=== PATIENT | male | born 1960 | race Caucasian/White ===

== ENCOUNTER → 2021-01-12 15:23 | Outpatient (REF) | payer MEDICARE, SELFPAY ==
--- NOTE | 2021-01-12 15:35 | ECG_ITS ---
Test Reason : R/O CONDUCTION DELAY Blood Pressure : / mmHG Vent. Rate : 073 BPM Atrial Rate : 073 BPM P-R Int : 186 ms QRS Dur : 096 ms QT Int : 394 ms P-R-T Axes : 042 060 051 degrees QTc Int : 434 ms Normal sinus rhythm RSR' or QR pattern in V1 suggests right ventricular conduction delay Borderline ECG When compared with ECG of 06-FEB-2019 08:19, No significant change was found Referred By: Ryan Gimenez Electronically Signed By:CORY LORENZ
[2021-01-12 16:54] LABS: Vitamin D 25-OH Total 38.2 ng/mL (>30)
== END ==
LOC: HO.CARD 15:23
PROVIDERS: PCP Internal Medicine; Visit Provider Psychiatry & Neurology Psychiatry
DX: I25.10 Atherosclerotic heart disease of native coronary artery without angina pectoris (principal); E55.9 Vitamin D deficiency, unspecified
CPT/HCPCS: 36415; 82306; 93005

== ENCOUNTER → 2022-03-01 14:03 | Outpatient (BNVA) | payer MEDICARE, SELFPAY | PROVIDERS: PCP Internal Medicine; Visit Provider Psychiatry & Neurology Psychiatry | DX: F33.9 Major depressive disorder, recurrent, unspecified (principal); F43.10 Post-traumatic stress disorder, unspecified; Z79.899 Other long term (current) drug therapy | CPT/HCPCS: 90833; 99212 ==

== ENCOUNTER → 2022-04-15 13:38 | Outpatient (BNVA) | payer MEDICARE, SELFPAY | PROVIDERS: PCP Internal Medicine; Visit Provider Psychiatry & Neurology Psychiatry | DX: Z13.89 Encounter for screening for other disorder (principal) ==

== ENCOUNTER → 2022-04-29 15:05 | Outpatient (BNVA) | payer MEDICARE, SELFPAY | PROVIDERS: PCP Internal Medicine; Visit Provider Psychiatry & Neurology Psychiatry | DX: F33.9 Major depressive disorder, recurrent, unspecified (principal) ==

== ENCOUNTER → 2022-08-03 14:49 | Outpatient (BNVA) | payer MEDICARE, SELFPAY | PROVIDERS: PCP Internal Medicine; Visit Provider Psychiatry & Neurology Psychiatry | DX: F33.9 Major depressive disorder, recurrent, unspecified (principal) | CPT/HCPCS: 90833; 99212 ==

== ENCOUNTER 2022-11-03 16:58 | Outpatient (AMB) | payer OTHER, SELFPAY ==
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
== END 2022-11-03 17:01 | disposition home or self-care (01) ==
LOC: HO.HOP 16:58
PROVIDERS: PCP Internal Medicine; Visit Provider Psychiatry & Neurology Psychiatry
DX: F33.9 Major depressive disorder, recurrent, unspecified (principal); F43.10 Post-traumatic stress disorder, unspecified; M54.16 Radiculopathy, lumbar region
CPT/HCPCS: 90833; 99213

== ENCOUNTER → 2022-11-03 16:58 | Outpatient (BNVA) | payer MEDICARE, SELFPAY | PROVIDERS: PCP Internal Medicine; Visit Provider Psychiatry & Neurology Psychiatry ==

== ENCOUNTER 2023-02-16 11:40 | Outpatient (AMB) | payer OTHER, SELFPAY ==
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
== END 2023-02-16 12:32 | disposition home or self-care (01) ==
LOC: HO.HOP 11:40
PROVIDERS: PCP Internal Medicine; Visit Provider Psychiatry & Neurology Psychiatry
DX: F33.9 Major depressive disorder, recurrent, unspecified (principal); F43.10 Post-traumatic stress disorder, unspecified
CPT/HCPCS: 90833; 99213

== ENCOUNTER → 2023-02-16 11:40 | Outpatient (BNVA) | payer OTHER, SELFPAY | PROVIDERS: PCP Internal Medicine; Visit Provider Psychiatry & Neurology Psychiatry ==

== ENCOUNTER 2023-03-16 15:59 | Outpatient (AMB) | payer OTHER, SELFPAY ==
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
== END 2023-03-16 17:08 | disposition home or self-care (01) ==
LOC: HO.HOP 15:59
PROVIDERS: PCP Internal Medicine; Visit Provider Psychiatry & Neurology Psychiatry
DX: F33.9 Major depressive disorder, recurrent, unspecified (principal); F43.10 Post-traumatic stress disorder, unspecified
CPT/HCPCS: 90833; 99213

== ENCOUNTER → 2023-03-16 15:59 | Outpatient (BNVA) | payer OTHER, SELFPAY | PROVIDERS: PCP Internal Medicine; Visit Provider Psychiatry & Neurology Psychiatry ==

== ENCOUNTER 2023-05-22 14:39 | Outpatient (AMB) | payer OTHER, SELFPAY ==
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
== END 2023-05-22 16:50 | disposition home or self-care (01) ==
LOC: HO.HOP 14:39
PROVIDERS: PCP Internal Medicine; Visit Provider Psychiatry & Neurology Psychiatry
DX: F43.10 Post-traumatic stress disorder, unspecified (principal); F33.9 Major depressive disorder, recurrent, unspecified; M54.16 Radiculopathy, lumbar region
CPT/HCPCS: 90833; 99213

== ENCOUNTER → 2023-05-22 14:39 | Outpatient (BNVA) | payer OTHER, SELFPAY | PROVIDERS: PCP Internal Medicine; Visit Provider Psychiatry & Neurology Psychiatry ==

== ENCOUNTER 2023-07-03 16:31 | Outpatient (AMB) | payer OTHER, SELFPAY ==
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
== END 2023-07-03 16:32 | disposition home or self-care (01) ==
LOC: HO.HOP 16:31
PROVIDERS: PCP Internal Medicine; Visit Provider Psychiatry & Neurology Psychiatry
DX: F33.9 Major depressive disorder, recurrent, unspecified (principal); F43.10 Post-traumatic stress disorder, unspecified
CPT/HCPCS: 90833; 99213

== ENCOUNTER → 2023-07-03 16:31 | Outpatient (BNVA) | payer OTHER, SELFPAY | PROVIDERS: PCP Internal Medicine; Visit Provider Psychiatry & Neurology Psychiatry ==

== ENCOUNTER 2023-07-27 10:48 | Outpatient (AMB) | payer OTHER, SELFPAY ==
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
== END 2023-07-27 11:49 | disposition home or self-care (01) ==
LOC: HO.HOP 10:48
PROVIDERS: PCP Internal Medicine; Visit Provider Psychiatry & Neurology Psychiatry
DX: F43.10 Post-traumatic stress disorder, unspecified (principal); F33.9 Major depressive disorder, recurrent, unspecified
CPT/HCPCS: 90833; 99213

== ENCOUNTER → 2023-07-27 10:48 | Outpatient (BNVA) | payer OTHER, SELFPAY | PROVIDERS: PCP Internal Medicine; Visit Provider Psychiatry & Neurology Psychiatry ==

== ENCOUNTER 2023-08-24 13:33 | Outpatient (AMB) | payer OTHER, SELFPAY ==
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
== END 2023-08-24 14:20 | disposition home or self-care (01) ==
LOC: HO.HOP 13:33
PROVIDERS: PCP Internal Medicine; Visit Provider Psychiatry & Neurology Psychiatry
DX: F43.10 Post-traumatic stress disorder, unspecified (principal); F33.9 Major depressive disorder, recurrent, unspecified; M54.16 Radiculopathy, lumbar region
CPT/HCPCS: 99214

== ENCOUNTER → 2023-08-24 13:33 | Outpatient (BNVA) | payer OTHER, SELFPAY | PROVIDERS: PCP Internal Medicine; Visit Provider Psychiatry & Neurology Psychiatry ==

== ENCOUNTER 2023-11-16 10:23 | Outpatient (AMB) | payer OTHER, SELFPAY ==
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
== END 2023-11-16 11:20 | disposition home or self-care (01) ==
LOC: HO.HOP 10:23
PROVIDERS: PCP Internal Medicine; Visit Provider Psychiatry & Neurology Psychiatry
DX: F33.9 Major depressive disorder, recurrent, unspecified (principal); F43.10 Post-traumatic stress disorder, unspecified
CPT/HCPCS: 99214

== ENCOUNTER → 2023-11-16 10:23 | Outpatient (BNVA) | payer OTHER, SELFPAY | PROVIDERS: PCP Internal Medicine; Visit Provider Psychiatry & Neurology Psychiatry ==

== ENCOUNTER 2024-01-04 13:25 | Outpatient (AMB) | payer OTHER, SELFPAY ==
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
== END 2024-01-04 14:07 | disposition home or self-care (01) ==
LOC: HO.HOP 13:25
PROVIDERS: PCP Internal Medicine; Visit Provider Psychiatry & Neurology Psychiatry
DX: F33.9 Major depressive disorder, recurrent, unspecified (principal); F43.10 Post-traumatic stress disorder, unspecified
CPT/HCPCS: 90833; 99213

== ENCOUNTER → 2024-01-04 13:25 | Outpatient (BNVA) | payer OTHER, SELFPAY | PROVIDERS: PCP Internal Medicine; Visit Provider Psychiatry & Neurology Psychiatry ==

== ENCOUNTER 2024-06-06 17:04 | Outpatient (AMB) | payer OTHER, SELFPAY ==
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
--- OUTSIDE RECORDS SUMMARY | 2024-06-06 19:35 | XMS_ITS ---
Author Name [facility] Organization Unknown History of Medication Use Medication Directions Dispensed Refills Start Date End Date Status hydroCHLOROthiazide (HYDRODIURIL) tablet hydrochlorothiazide 25 mg tablet TAKE 1 TABLET BY MOUTH EVERY DAY 05/15/19 18 active amLODIPine (NORVASC) 10 mg tablet amlodipine 10 mg tablet TAKE 1 TABLET BY MOUTH EVERY DAY 07/03/19 21 active DULoxetine (CYMBALTA) 20 mg capsule Take by mouth. 10/14/19 22 active insulin lispro 100 unit/mL insulin pen Humalog KwikPen (U-100) Insulin 100 unit/mL subcutaneous INJECT 50 UNITS UNDER THE SKIN EVERY DAY AFTER DINNER active gabapentin (NEURONTIN) 300 mg capsule Take 600 mg by mouth. 09/02/19 22 active insulin glargine (Lantus Solostar U-100 Insulin) 100 unit/mL (3 mL) insulin pen Lantus Solostar U-100 Insulin 100 unit/mL (3 mL) subcutaneous pen INJECT 120 UNITS UNDER THE SKIN ONCE DAILY DIRECTED active hydrALAZINE (APRESOLINE) 50 mg tablet Take 50 mg by mouth in the morning and 50 mg in the evening. Take with meals. 09/10/19 22 022 active Jardiance 25 mg tablet TAKE 1 TABLET BY MOUTH EVERY DAY IN THE MORNING 08/13/19 22 active Problems Problem Status Onset Date Problem Type Date of Resolution Source Hypercholesterolemia active 5 ProblemAct [facility] Pain active EncounterDiagnosisAct [facility] Diabetes mellitus active 5 ProblemAct [facility] Hypertension active 5 ProblemAct [facility] Cannabis abuse active 5 ProblemAct [facility] Lumbosacral spondylosis without myelopathy active 5 ProblemAct [facility] Herniated lumbar intervertebral disc active 5 ProblemAct [facility] Osteoarthritis active 5 ProblemAct [facility] Lumbar radiculitis active EncounterDiagnosisAct [facility] Chronic low back pain active 5 ProblemAct [facility] Spinal stenosis of lumbar region active 5 ProblemAct [facility] Lumbar spondylosis active EncounterDiagnosisAct [facility] Headache active 5 ProblemAct [facility] Narcotic drug use active 5 ProblemAct [facility] Lumbosacral radiculitis active 5 ProblemAct [facility] Lumbar post-laminectomy syndrome active 5 ProblemAct [facility] Obesity active 5 ProblemAct [facility] Arteriosclerosis of coronary artery active 5 ProblemAct [facility] Enthesopathy of hip region active 5 ProblemAct [facility]
--- OUTSIDE RECORDS SUMMARY | 2024-06-06 19:35 | XMS_ITS | Data Portability ---
Author Organization [facility], PAIN OFFICE Address [address] [facility] [address] [place] [address] Care Team Providers Care Sourcing Assistant Name Role Phone SHIV GUEVARA Primary Care Provider Assessment Encounter Date Assessment Date Assessment LastModified by Organization Details LastModified Time 11/23/2018 11/23/2018 Pete Gonzalez i s a 58 year old man with chronic low back pain radiating into right lower extremity. On exam, well healed scar is present in the lower lumbar region. Straight leg raising test is positive on the right. MRI Lumbar spine shows L3-L4 level: essentially similar partial right hemilaminectomy/fa cetectomy surgical sequela and nonspecific mild epidural enhancement. Disc bulging, mild endplate osteophytic ridging and interval developing superimposed peripherally enhancing T2 hyperintense primarily central disc herniation result in the interval increased central spinal canal with at least moderate central spinal canal stenosis (cauda equina nerve root impingement not excluded) and essentially similar mild bilateral neural foraminal stenosis. He is here for a follow up . He is on Fentanyl patch 25 mcg every 72 hours and uses oxycodone 20 mg every 6 hours. He wants to wean off the fentanyl patch. I recommend stopping the fentanyl patch. I recommend Oxycodone ER 20 mg BID and reducing the dose of short acting oxycodone to 10 mg every 6 hours. I have advised him to discuss the recommendations with Dr. Guevara, His PCP. There is a role for opioid therapy for persistent mechanical pain refractory to other treatments. I have reviewed Mr. Gonzalez's prescription summary on the [facility] website and he has received prescriptions from his PCP , Dr. Guevara only and at one pharmacy the [place], [place]. He can follow up as needed. [email or web address] Not available 12/18/2018 16:18:47 09/04/2019 09/04/2019 Pete Gonzalez i s a 55 year old man with chronic low back pain radiating into left lower extremity. MRI Lumbar spine shows Multilevel degenerative change and L3-L4 postoperative changes. Persistent moderate central stenosis L3-L4 level related to disc herniation and central scar with focal crowding of nerve roots of the cauda equina. L4-L5 left central disc herniation with extruded fragment deforming thecal sac and focally contacting left L5 nerve root, a change from preceding study. I recommend a lumbar epidural steroid injection under fluoroscopic guidance. The risks and benefits of the procedure were reviewed in detail and he wishes to proceed. An appointment has been made for the same. He needs a route cdl driver with him on the day of the procedure. [email or web address] Not available 09/04/2019 09:22:29 10/02/2019 10/02/2019 Pete Gonzalez i s a 59 year old man with chronic low back pain radiating into left lower extremity. On exam, well healed scar is present in the lower lumbar region. Straight leg raising test is positive on the left. MRI Lumbar spine shows Multilevel degenerative change and L3-L4 postoperative changes. Persistent moderate central stenosis L3-L4 level related to disc herniation and central scar with focal crowding of nerve roots of the cauda equina. L4-L5 left central disc herniation with extruded fragment deforming thecal sac and focally contacting left L5 nerve root, a change from preceding study. He is here for a repeat lumbar epidural steroid injection under fluoroscopic guidance. The risks and benefits of the procedure were reviewed in detail and he wishes to proceed. He needs to follow up in six weeks by telehealth. [email or web address] Not available 10/02/2019 10:03:55 10/24/2019 10/24/2019 Pete Gonzalez i s a 59 year old man with chronic low back pain radiating into left lower extremity. On exam, well healed scar is present in the lower lumbar region. Straight leg raising test is positive on the left. MRI Lumbar spine shows Multilevel degenerative change and L3-L4 postoperative changes. Persistent moderate central stenosis L3-L4 level related to disc herniation and central scar with focal crowding of nerve roots of the cauda equina. L4-L5 left central disc herniation with extruded fragment deforming thecal sac and focally contacting left L5 nerve root, a change from preceding study. He is here for a follow up after a lumbar epidural steroid injection under fluoroscopic guidance.He reports 90% pain relief which is ongoing with improved functionality. He can follow up as needed. [email or web address] Not available 10/24/2019 11:05:41 07/20/2020 07/20/2020 Pete Gonzalez i s a 55 year old man with chronic low back pain radiating into left lower extremity. MRI Lumbar spine shows Multilevel degenerative change and L3-L4 postoperative changes. Persistent moderate central stenosis L3-L4 level related to disc herniation and central scar with focal crowding of nerve roots of the cauda equina. L4-L5 left central disc herniation with extruded fragment deforming thecal sac and focally contacting left L5 nerve root, a change from preceding study. I recommend a lumbar epidural steroid injection under fluoroscopic guidance once his diabetes is better controlled. His Last A1c was 9.9 . The risks and benefits of the procedure were reviewed in detail and he wishes to proceed. An appointment has been made for the same. He needs a route cdl driver with him on the day of the procedure. [email or web address] Not available 07/20/2020 14:53:59 Plan of Treatment Reminders Order Date Submit Date Provider Last Modified By Organization Details Last Modified Time Details Appointments None record ed. Lab None record ed. Referral None record ed. Procedures None record ed. Surgeries None record ed. Imaging None record ed. Medication Orders None record ed. Patient TargetsNo targets recorded. Patient Instructions Encounter Date Encounter Id Patient Instructions Last Modified By Organization Details Last Modified Time 11/23/2018 [id number] He was advised against bed rest lasting longer than 4 days [email or web address] Not available 12/18/2018 16:08:18 09/04/2019 [id number] He is a diabetic. Blood sugar levels may temporarily increase after steroid injections. He was advised to check his blood glucose levels three times a day post procedure. If his levels are above 250, he was advised to contact his PCP. [email or web address] Not available 09/04/2019 09:23:02 He was advised against bed rest lasting longer than 4 days. Telehealth visit: The patient was located at home for this telephone electronic visit and gave consent for this visit to be conducted via telehealth. 15 minutes was spent on this call and greater than 50% of the visit was spent on counseling and coordination of care. [email or web address] Not available 09/04/2019 09:22:50 10/02/2019 [id number] He was advised against bed rest lasting longer than 4 days [email or web address] Not available 10/02/2019 10:02:03 10/24/2019 [id number] He was advised against bed rest lasting longer than 4 days. Telehealth visit: The patient was located at home for this telephone electronic visit and gave consent for this visit to be conducted via telehealth. 15 minutes was spent on this call and greater than 50% of the visit was spent on counseling and coordination of care. [email or web address] Not available 10/24/2019 11:05:56 07/20/2020 [id number] He is a diabetic. Blood sugar levels may temporarily increase after steroid injections. He was advised to check his blood glucose levels three times a day post procedure. If his levels are above 250, he was advised to contact his PCP. [email or web address] Not available 07/20/2020 14:05:17 He was advised against bed rest lasting longer than 4 days. Telehealth visit: The patient was located at home for this telephone electronic visit and gave consent for this visit to be conducted via telehealth. 15 minutes was spent on this call and greater than 50% of the visit was spent on counseling and coordination of care. [email or web address] Not available 07/20/2020 14:05:18 Reason for Referral None Reported. Problems Name Problem SNOMED Code Status Onset Date Resolution Date Notes Provider Name and Address Organization Details Recorded Time Spinal stenosis of lumbar region 73937062 Sheila casiano MD [address] , [address], [place], [address], [place] [facility] 6 13:52:32 Displacement of lumbar intervertebral disc without myelopathy 31043295 Sheila casiano MD [address] , [address], [place], [address], [place] [facility] 6 13:52:32 Enthesopathy of hip region 44425952 Sheila casiano MD [address] , [address], [place], [address], [place] [facility] 6 13:58:18 Lumbar post-laminecto my syndrome 284155695 Active Hadley casiano MD [address] , [address], [place], [address], [place] [facility] 6 13:52:32 Lumbosacral radiculitis 35319803 Active Hadley casiano MD [address] [facility] , [address], [place], [address], [place] [facility] 6 13:52:32 Lumbosacral spondylosis without myelopathy 26918457 Active Hadley casiano MD [address] [facility] , [address], [place], [address], [place] [facility] 6 13:52:32 Problem Notes None recorded. Procedures Surgical History Date Name Laterality Status Provider Name and Address Organization Details Recorded Time 10/02/19 20 Lumbar Epidural steroid injection under fluoroscopic guidance completed Hadley Meng MD [address] [facility] , [address], [place], [address], [place] [facility] 10/02/2019 10:03:06 05/02/19 19 Lumbar Epidural steroid injection under fluoroscopic guidance completed Hadley Meng MD [address] [facility] , [address], [place], [address], [place] [facility] 05/03/2018 14:05:54 12/30/19 16 Lumbar Transforaminal epidural steroid injection under fluroscopic guidance completed Hadley Meng MD [address] [facility] , [address], [place], [address], [place] [facility] 12/30/2015 13:42:56 11/17/19 16 Greater Trochanteric Bursa Steroid Injection completed Hadley Meng MD [address] [facility] , [address], [place], [address], [place] [facility] 11/17/2015 13:58:18 02/09/20 10 Other completed Stacia Arriaga [place] [facility] 11/04/2015 23:00:26 Cholecystectomy completed Stacia Arriaga [place] [facility] 10/29/2015 09:12:56 Knee Surgery completed Stacia Arriaga [place] [facility] 11/05/2015 10:42:56 Other completed Stacia Coucher [place] [facility] 04/06/2016 14:08:48 CABG completed Stacia Arriaga [place] [facility] 04/12/2018 13:34:24 Imaging Results None recorded. Procedure Notes None recorded. Medical Equipment None Reported. Allergies No known drug allergies Medications Name Sig Start Date Stop Date Status Note LastModified by Organization Details LastModified Time quetiapine 25 mg tablet 09/03 completed Not Available Not Available Not Available fluoxetine 40 mg capsule 05/02 completed Not Available Not Available Not Available cyclobenzap rine 10 mg tablet active Not Available Not Available Not Available amoxicillin 500 mg capsule 05/02 completed Not Available Not Available Not Available atorvastati n 40 mg tablet TAKE 1 TABLET BY MOUTH DAILY active Not Available Not Available No t Available fentanyl 50 mcg/hr transdermal patch 11/23 completed Not Available Not Available Not Available carvedilol 25 mg tablet TAKE 1 AND 1/2 TABLETS BY MOUTH TWICE DAILY active Not Available Not Available No t Available carvedilol 6.25 mg tablet TAKE 1 TABLET BY MOUTH TWICE DAILY active Not Available Not Available No t Available clonidine 0.1 mg/24 hr weekly transdermal patch 04/26 completed Not Available Not Available Not Available tizanidine 2 mg tablet 04/06 completed Not Available Not Available Not Available clonidine 0.2 mg/24 hr weekly transdermal patch 04/26 completed Not Available Not Available Not Available ondansetron HCl 4 mg tablet 11/23 completed Not Available Not Available Not Available clonazepam 0.5 mg tablet 09/03 completed Not Available Not Available Not Available clonazepam 1 mg tablet TAKE 1 TABLET BY MOUTH TWICE DAILY. MAY TAKE 1 DAILY NEEDED active Not Available Not Available No t Available amlodipine 5 mg tablet 09/03 completed Not Available Not Available Not Available quetiapine 100 mg tablet TAKE 2 TABLETS BY MOUTH DAILY 07/20 completed Not Available Not Available Not Available triamcinolo ne acetonide 0.1 % topical cream active Not Available Not Available Not Available amitriptyli ne 25 mg tablet 04/12 completed Not Available Not Available Not Available fentanyl 100 mcg/hr transdermal patch 04/12 completed Not Available Not Available Not Available hydrocortis one 2.5 % lotion 11/23 completed Not Available Not Available Not Available trazodone 100 mg tablet 09/03 completed Not Available Not Available Not Available OneTouch Ultra Test strips active Not Available Not Available Not Available amlodipine 10 mg tablet TAKE 1 TABLET BY MOUTH EVERY DAY active Not Available Not Available No t Available metformin 1,000 mg tablet active Not Available Not Available Not Available dexamethaso ne 4 mg tablet 05/02 completed Not Available Not Available Not Available valsartan 320 mg tablet active Not Available Not Available Not Available aspirin 81 mg chewable tablet CHEW AND SWALLOW 1 TABLET BY MOUTH DAILY active Not Available Not Available No t Available montelukast 10 mg tablet active Not Available Not Available Not Available hydralazine 50 mg tablet TAKE 1 TABLET BY MOUTH TWICE DAILY WITH FOOD active Not Available Not Available No t Available clonidine 0.3 mg/24 hr weekly transdermal patch 04/26 completed Not Available Not Available Not Available hydrochloro thiazide 25 mg tablet TAKE 1 TABLET BY MOUTH EVERY DAY active Not Available Not Available No t Available zolpidem 5 mg tablet 09/03 completed Not Available Not Available Not Available lorazepam 1 mg tablet Take 1 tablet 3 times a day by oral route. 09/03 completed Not Available Not Available Not Available fentanyl 25 mcg/hr transdermal patch 09/03 completed Not Available Not Available Not Available ketoconazol e 2 % topical cream active Not Available Not Available Not Available nifedipine ER 60 mg tablet,exte nded release 11/23 completed Not Available Not Available Not Available fentanyl 75 mcg/hr transdermal patch Apply 1 patch every 72 hours by transderm al route. 11/23 completed Not Available Not Available Not Available ondansetron 4 mg disintegrat ing tablet 09/03 completed Not Available Not Available Not Available fluoxetine 20 mg capsule 11/23 completed Not Available Not Available Not Available fluticasone propionate 50 mcg/actuati on nasal spray,suspe nsion USE 2 SPRAY(S) IN EACH NOSTRIL ONCE DAILY active Not Available Not Available No t Available doxycycline hyclate 100 mg tablet 05/02 completed Not Available Not Available Not Available irbesartan 300 mg tablet TAKE 1 TABLET BY MOUTH EVERY DAY active Not Available Not Available No t Available testosteron e 1 % (50 mg/5 gram) transdermal gel packet 09/03 completed Not Available Not Available Not Available Pneumovax-2 3 25 mcg/0.5 mL injection syringe inject 0.5 millilite r intramusc ularly 09/03 completed Not Available Not Available Not Available aripiprazol e 5 mg tablet 09/03 completed Not Available Not Available Not Available eszopiclone 2 mg tablet TK 1 T PO QHS active Not Available Not Available No t Available OneTouch Ultra2 Meter kit active Not Available Not Available No t Available BD Ultra-Fine Short Pen Needle 31 gauge x 08/23 active Not Available Not Available Not Available quetiapine 50 mg tablet TK 1/2 TO 2 TS PO D 10/23 completed Not Available Not Available Not Available Januvia 100 mg tablet 04/12 completed Not Available Not Available Not Available hydrochloro thiazide 12.5 mg tablet 05/02 completed Not Available Not Available Not Available Lantus Solostar U-100 Insulin 100 unit/mL (3 mL) subcutaneou s pen INJECT 120 UNITS UNDER THE SKIN ONCE DAILY DIRECTED active Not Available Not Available No t Available Humalog KwikPen (U-100) Insulin 100 unit/mL subcutaneou s INJECT 50 UNITS UNDER THE SKIN EVERY DAY AFTER DINNER active Not Available Not Available No t Available oxycodone 20 mg tablet 1 tab QID 09/03 completed Not Available Not Available Not Available oxycodone 10 mg tablet active Not Available Not Available Not Available Deplin (algal oil) 15 mg-90.314 mg capsule Take 1 capsule every day by oral route. 09/03 completed Not Available Not Available Not Available Fetzima 80 mg capsule,ext ended release Take 1 capsule every day by oral route. 09/03 completed Not Available Not Available Not Available OxyContin 20 mg tablet,megan h resistant,e xtended release 09/03 completed Not Available Not Available Not Available Rexulti 1 mg tablet Take 1 tablet every day by oral route. 09/03 completed Not Available Not Available Not Available Xtampza ER 9 mg capsule sprinkle 09/03 completed Not Available Not Available Not Available Xtampza ER 13.5 mg capsule sprinkle active Not Available Not Available Not Available Trintellix 20 mg tablet TAKE 1 TABLET BY MOUTH EVERY DAY active Not Available Not Available No t Available OneTouch Ultra Blue Test Strip active Not Available Not Available N ot Available FreeStyle Tonio 14 Day [place] USE DIRECTED active Not Available Not Available No t Available FreeStyle Tonio 14 Day Sensor kit CHANGE OUT EVERY 2 WEEKS active Not Available Not Available No t Available Flucelvax Quad 1986-4801 (PF) 60 mcg (15 mcg x 4)/0.5 mL IM syringe inject 0.5 millilite rs intramusc ularly 09/03 completed Not Available Not Available Not Available Vitals Date Recorded Body height Body mass index (BMI) Body weight Heart rate Oxygen saturation Oxygen saturation in Arterial blood by Pulse oximetry Systolic blood pressure Diastolic blood pressure Provider Name and Address Organization Details Last Updated DateTime 9 182.88 cm 35.4 kg/m2 920678. 61 g 84 /min 97 % 97 % 175 mm[Hg] 82 mm[Hg] Hadley casiano MD [facility] [address] [facility] , [address], [place], [address], [place] [facility] 9 11:21:54 Date Recorded Body height Heart rate Oxygen saturation Oxygen saturation in Arterial blood by Pulse oximetry Body mass index (BMI) Body weight Systolic blood pressure Diastolic blood pressure Provider Name and Address Organization Details Last Updated DateTime 0 182.88 cm 88 /min 98 % 98 % 35.4 kg/m2 839095. 61 g 166 mm[Hg] 79 mm[Hg] Shahzad casiano [place] [facility] 0 09:24:51 Social History Question Answer Notes LastModified by Organizat ion Details LastModified Time Tobacco Smoking Status Former Smoker Quit x 3 months Not Available [facility] 01/24/2020 03:16:10 What Is Your Level Of Alcohol Consumption? None [id number] Information not available 01/24/2020 Are You Currently Employed? No Disability [id number] Information not available 01/24/2020 Which Illicit Or Recreational Drugs Have You Used? No [id number] Information not available 01/24/2020 Education 4 Year College BA [email or web address] Information not available 10/29/2015 Live Alone Or With Others? With Others Information not available 10/29/2015 Marital Status Informatio n not available 10/29/2015 What Was The Date Of Your Most Recent Tobacco Screening? 05/31/2018 [id number] Information not available 01/24/2020 How Much Tobacco Do You Smoke? No [id number] Information not available 01/24/2020 How Many Years Have You Smoked Tobacco? 10 [id number] Information not available 01/24/2020 Sex: Unknown Functional Status None recorded. Mental Status None recorded. Family History Nothing Reported. Medical History Condition Response Neuropathy/Neuralgia Y Depression Y Diabetes Y Anxiety Disorder Y Hypertension Y Past Encounters Encounter ID Performer Location Encounter Start Date Encounter Closed Date Diagnosis/Indication Diagnosis SNOMED-CT Code Diagnosis ICD10 Code Diagnosis Note [id number] Hadley Meng MD PAIN OFFICE [address] [place] [address] 10/29/2015 08:41:04 11/02/2015 15:59:09 Enthesopathy of hip region 09855095 M76.9 Lumbar post-laminectomy syndrome 802734864 M96.1 Spinal nilo nosis of lumbar region 81405195 M48.06 Lumbosacra l radiculitis 98201538 M54.17 Lumbosacra l spondylosis without myelopathy 80729829 M47.817 Displaceme nt of lumbar intervertebral disc without myelopathy 56778776 M51.26 [id number] Hadley Meng MD PAIN OFFICE [address] [place] [address] 11/17/2015 12:57:51 11/17/2015 14:00:05 Enthesopathy of hip region 35974748 M70.61 [id number] Hadley Meng MD PAIN OFFICE [address] [place] [address] 12/17/2015 14:18:25 12/19/2015 10:23:49 Enthesopathy of hip region 59856925 M76.9 Lumbar post-laminectomy syndrome 762584365 M96.1 Spinal nilo nosis of lumbar region 55181732 M48.06 Lumbosacra l radiculitis 29258830 M54.17 Lumbosacra l spondylosis without myelopathy 75492024 M47.817 Displaceme nt of lumbar intervertebral disc without myelopathy 58051552 M51.26 [id number] Hadley Meng MD [facility] [address] [place] [address] 12/30/2015 10:13:40 12/31/2015 08:41:07 Lumbosacral radiculitis 19176462 M54.17 Lumbar post-laminectomy syndrome 919118520 M96.1 Spinal nilo nosis of lumbar region 24903480 M48.06 Displaceme nt of lumbar intervertebral disc without myelopathy 90466000 M51.26 Enthesopat hy of hip region 91590658 M76.9 Lumbosacra l spondylosis without myelopathy 56540467 M47.817 [id number] Hadley Meng MD [facility] [address] [place] [place] [address] 02/08/2016 10:27:14 02/13/2016 13:21:47 Lumbosacral radiculitis 14197515 M54.17 Lumbar post-laminectomy syndrome 530461883 M96.1 Spinal nilo nosis of lumbar region 16486891 M48.06 Displaceme nt of lumbar intervertebral disc without myelopathy 95796655 M51.26 Enthesopat hy of hip region 65559419 M76.9 Lumbosacra l spondylosis without myelopathy 29557263 M47.817 [id number] Hadley Meng MD [facility] [address] [place] [place] [address] 04/06/2016 13:54:38 04/07/2016 14:29:57 Lumbosacral radiculitis 36968295 M54.17 Lumbar post-laminectomy syndrome 995152275 M96.1 Spinal nilo nosis of lumbar region 99037892 M48.06 Displaceme nt of lumbar intervertebral disc without myelopathy 18563313 M51.26 Enthesopat hy of hip region 60243928 M76.9 Lumbosacra l spondylosis without myelopathy 92782275 M47.817 [id number] Hadley Meng MD [facility] [address] [place] [address] 04/12/2018 13:23:42 04/13/2018 09:35:11 Spinal stenosis of lumbar region 25482942 M48.061 Lumbar post-laminectomy syndrome 167133901 M96.1 Lumbosacra l radiculitis 02852634 M54.17 Lumbosacra l spondylosis without myelopathy 34749084 M47.817 Displaceme nt of lumbar intervertebral disc without myelopathy 34442137 M51.26 Enthesopat hy of hip region 51935951 M76.9 [id number] Hadley Meng MD PAIN OFFICE [address] [place] [address] 04/26/2018 10:16:43 04/26/2018 11:54:39 Spinal stenosis of lumbar region 05030862 M48.061 Lumbar post-laminectomy syndrome 898750064 M96.1 Lumbosacra l radiculitis 41543794 M54.17 Lumbosacra l spondylosis without myelopathy 94932622 M47.817 Displaceme nt of lumbar intervertebral disc without myelopathy 76388238 M51.26 Enthesopat hy of hip region 15355653 M76.9 [id number] Hadley Meng MD PAIN OFFICE [address] [place] [place] [address] 05/02/2018 10:32:38 05/03/2018 14:10:03 Spinal stenosis of lumbar region 95471551 M48.061 Lumbar post-laminectomy syndrome 993392511 M96.1 Lumbosacra l radiculitis 98208134 M54.17 Lumbosacra l spondylosis without myelopathy 65302918 M47.817 Displaceme nt of lumbar intervertebral disc without myelopathy 58323870 M51.26 Enthesopat hy of hip region 24014920 M76.9 [id number] Hadley Meng MD [facility] [address] [place] [address] 05/31/2018 13:26:45 05/31/2018 14:00:17 Spinal stenosis of lumbar region 23465678 M48.061 Lumbar post-laminectomy syndrome 300494254 M96.1 Lumbosacra l radiculitis 49984563 M54.17 Lumbosacra l spondylosis without myelopathy 00352890 M47.817 Displaceme nt of lumbar intervertebral disc without myelopathy 62785701 M51.26 Enthesopat hy of hip region 33144275 M76.9 [id number] Hadley Meng MD PAIN OFFICE [address] [employer] [address] [place] [address] 11/23/2018 10:46:54 12/18/2018 16:19:23 Lumbosacral radiculitis 79879014 M54.17 Lumbar post-laminectomy syndrome 328836513 M96.1 Spinal nilo nosis of lumbar region 46595286 M48.061 Displaceme nt of lumbar intervertebral disc without myelopathy 66327243 M51.26 Enthesopat hy of hip region 18061473 M76.9 Lumbosacra l spondylosis without myelopathy 15638302 M47.817 [id number] Hadley Meng MD PAIN OFFICE [address] [employer] [place] [place] [address] 09/04/2019 09:00:24 09/04/2019 09:23:48 Spinal stenosis of lumbar region 08421919 M48.061 Lumbar post-laminectomy syndrome 820536648 M96.1 Lumbosacra l radiculitis 54857986 M54.17 Lumbosacra l spondylosis without myelopathy 91387621 M47.817 Displaceme nt of lumbar intervertebral disc without myelopathy 58871328 M51.26 Enthesopat hy of hip region 76713746 M76.9 [id number] Hadley Meng MD PAIN OFFICE [address] [employer] [place] [place] [address] 10/02/2019 09:17:58 10/02/2019 10:29:09 Spinal stenosis of lumbar region 29645120 M48.061 Lumbar post-laminectomy syndrome 567807459 M96.1 Lumbosacra l radiculitis 85923418 M54.17 Lumbosacra l spondylosis without myelopathy 22181221 M47.817 Displaceme nt of lumbar intervertebral disc without myelopathy 26099477 M51.26 Enthesopat hy of hip region 47206837 M76.9 [id number] Hadley Meng MD PAIN OFFICE [address] [employer] [address] [place] [address] 10/24/2019 10:59:19 10/24/2019 11:06:51 Spinal stenosis of lumbar region 28867327 M48.061 Lumbar post-laminectomy syndrome 153460238 M96.1 Lumbosacra l radiculitis 74303530 M54.17 Lumbosacra l spondylosis without myelopathy 16213657 M47.817 Displaceme nt of lumbar intervertebral disc without myelopathy 74209358 M51.26 Enthesopat hy of hip region 96559364 M76.9 [id number] Hadley Meng MD [facility] PAIN OFFICE [address] [facility] [address] [place] [address] 07/20/2020 14:03:57 07/20/2020 14:54:36 Spinal stenosis of lumbar region 63836103 M48.061 Lumbar post-laminectomy syndrome 103353206 M96.1 Lumbosacra l radiculitis 22173907 M54.17 Lumbosacra l spondylosis without myelopathy 72859918 M47.817 Displaceme nt of lumbar intervertebral disc without myelopathy 40920540 M51.26 Enthesopat hy of hip region 68187599 M76.9 Health Concerns Section Related Observation LastModified by Organization Detai ls LastModified Time None Recorded Concern Status LastModified by Organization Details LastModified Time None Recorded Advance Directives Directive None Recorded Payers Encounter Date Sequence Insurance Name Policy Number Policy Curry Covered Member ID Curry Member ID Guarantor Name 11/23/2018 1 [facility] (MEDICARE REPLACEMENT/A DVANTAGE - PPO) [id number] Pete Gonzalez [id number] Pete Gonzalez 11/23/2018 2 [facility]: [facility] [id number] Pete Gonzalez [id number] Pete Gonzalez 09/04/2019 1 [facility] (MEDICARE REPLACEMENT/A DVANTAGE - PPO) [id number] Pete Gonzalez [id number] Pete Gonzalez 09/04/2019 2 [facility]: [facility] ([facility] [place] [facility] [id number] Pete Gonzalez [id number] Pete Gonzalez 10/02/2019 1 [facility] (MEDICARE REPLACEMENT/A DVANTAGE - PPO) [id number] Pete Gonzalez [id number] Pete Solistt 10/02/2019 2 [place] [facility] [place] [facility] [id number] Pete Gonzalez [id number] Pete Gonzalez 10/24/2019 1 [facility] (MEDICARE REPLACEMENT/A DVANTAGE - PPO) [id number] Pete Gonzalez [id number] Pete Gonzalez 10/24/2019 2 [place] [facility] [place] [id number] Pete Gonzalez [id number] Pete Gonzalez 07/20/2020 1 [facility] (MEDICARE REPLACEMENT/A DVANTAGE - PPO) [id number] Pete Adleravitt [id number] Pete Adleravitt Notes Date Note Type Note Provider Name and Address Organization Details Recorded Time 11/23/2018 text/html He is here for a follow up. He is on Fentanyl patches 25 mcg every 72 hours and He is unsure of his pain benefit. He wants to wean off the fentanyl patch. He is taking Oxycodone 20 mg every 4 hours with some pain benefit. He is on a narcotic contract with Dr. Guevara. He states his goal is wean off the opioid medications . He has no history of bladder or bowel incontinence. Hadley Meng MD [address] [facility] , [place] [address], [place], [address], [facility] Pain Management 12/18/2018 16:21:02 09/04/2019 text/html This is a follow up. He recently moved to [place], [place] and has been having increasing pain since the move. He is complaining of low back pain radiating into left lower extremity. He has no history of bladder or bowel incontinence.He had lumbar epidural steroid injection under fluoroscopic guidance on 04/2018 which he states it helped for a few months. He is having difficulty walking due to pain. Hadley Meng MD [address] [facility] , [facility] [address], [place], [address], [facility] Pain Management 09/04/2019 13:17:49 10/02/2019 text/html He is here today for a lumbar epidural steroid injection under fluoroscopic guidance. Hadley Meng MD [address] [facility] , [facility] [address], [place], [address], [place] - [facility] 10/02/2019 10:41:03 10/24/2019 text/html This is a follow up after a lumbar epidural steroid injection under fluoroscopic guidance. He reports 90% pain relief which is ongoing. He is no longer using a cane and is able to walk better. He has no history of bladder or bowel incontinence. Hadley Meng MD [address] [facility] [address], [place], [address], [facility] - [facility] Pain [facility] 10/24/2019 14:23:37 07/20/2020 text/html This is a follow up.He is complaining of low back pain radiating into left lower extremity. He has no history of bladder or bowel incontinence.He had lumbar epidural steroid injection under fluoroscopic guidance on 09/2019 which he states it helped for more than 6 months. He is having difficulty walking due to pain.He was recently admitted at [facility] due to hypotension. His HbA1c was 9.9. He is getting his Covid vaccine tomorrow. Hadley Meng MD [address] [facility] , [address], [place], [address], [place] - [facility] 07/21/2020 10:03:52
--- OUTSIDE RECORDS SUMMARY | 2024-06-06 19:35 | XMS_ITS | Clinical Summary ---
Author Organization [facility] Address [address] [place] [address] Care Team Providers Care Central Lab Technician Name Role Phone Claus Osullivan Primary Care Provider [phone] Allergies No known active allergies Medications oxyCODONE (ROXICODONE) 10 mg tablet oxycodone 10 mg tablet 08/25 21 Active Xtampza ER 18 mg capsule,sprin kle,ER 12hr tmprr 10/01/19 22 Active metFORMIN (GLUCOPHAGE) 1,000 mg tablet metformin 1,000 mg tablet 03/21/20 13 Active hydrALAZINE (APRESOLINE) 50 mg tablet Take 50 mg by mouth in the morning and 50 mg in the evening. Take with meals. 09/10/19 22 Active insulin glargine (Lantus Solostar U-100 Insulin) 100 unit/mL (3 mL) insulin pen Lantus Solostar U-100 Insulin 100 unit/mL (3 mL) subcutaneous pen INJECT 120 UNITS UNDER THE SKIN ONCE DAILY DIRECTED Active insulin lispro 100 unit/mL insulin pen Humalog KwikPen (U-100) Insulin 100 unit/mL subcutaneous INJECT 50 UNITS UNDER THE SKIN EVERY DAY AFTER DINNER Active amLODIPine (NORVASC) 10 mg tablet amlodipine 10 mg tablet TAKE 1 TABLET BY MOUTH EVERY DAY 07/03/19 21 Active Jardiance 25 mg tablet TAKE 1 TABLET BY MOUTH EVERY DAY IN THE MORNING 08/13/19 22 Active atorvastatin (LIPITOR) 40 mg tablet atorvastatin 40 mg tablet TAKE 1 TABLET BY MOUTH DAILY 07/03/19 21 Active hydroCHLOROth iazide (HYDRODIURIL) tablet hydrochlorothiazide 25 mg tablet TAKE 1 TABLET BY MOUTH EVERY DAY 05/15/19 18 Active clonazePAM (KlonoPIN) 1 mg tablet clonazepam 1 mg tablet TAKE 1 TABLET BY MOUTH TWICE DAILY. MAY TAKE 1 DAILY NEEDED 07/03/19 21 Active carvediloL (COREG) 25 mg tablet Take 37.5 mg by mouth. 08/05 22 Active gabapentin (NEURONTIN) 300 mg capsule Take 600 mg by mouth. 22 Active DULoxetine (CYMBALTA) 20 mg capsule Take by mouth. 10/14/19 22 Active Active Problems Problem Noted Date Diagnosed Date Follow up 10/26/2021 Overview (10/26/2021): SOAPP-R: 18 on 05/15/17. Arteriosclerosis of coronary artery 10/12/2021 Cannabis abuse 10/12/2021 Chronic low back pain 10/12/2021 Diabetes mellitus 10/12/2021 Enthesopathy of hip region 10/12/2021 Headache 10/12/2021 Herniated lumbar intervertebral disc 10/12/2021 Hypercholesterolemia 10/12/2021 Hypertension 10/12/2021 Lumbar post-laminectomy syndrome 10/12/2021 Lumbosacral radiculitis 10/12/2021 Lumbosacral spondylosis without myelopathy 10/12 Narcotic drug use 10/12/2021 Obesity 10/12/2021 Osteoarthritis 10/12/2021 Spinal stenosis of lumbar region 10/12/2021 Social History Tobacco Use Types Packs/Day Years Used Date Smoking Tobacco: Former Cigarettes Q uit: 1988 Smokeless Tobacco: Never Alcohol Use Standard Drinks/Week Comments Not Currently 0 (1 standard drink = 0.6 oz pur e alcohol) quit 2009 Sex and Gender Information Value Date Recorded Sex Assigned at Not on file Legal Sex Male 6:05 AM EST Gender Identity Not on file Sexual Orientation Not on file Last Filed Vital Signs Vital Sign Reading Time Taken Comments Blood Pressure 126/82 10/26/2021 8:03 AM EDT Pulse 69 10/26/2021 8:03 AM EDT Temperature - - Respiratory Rate - - Oxygen Saturation - - Inhaled Oxygen Concentration - - Weight 107 kg (236 lb) 10/26/2021 8:03 AM EDT Height 182.9 cm (6') 10/26/2021 8:03 AM EDT Body Mass Index 32.01 10/26/2021 8:03 AM EDT Plan of Treatment Health Maintenance Due Date Last Done Comments CT Colonography 1960 Colonoscopy 1960 Colorectal Cancer Screening 1960 FIT-DNA (Cologuard) 1960 FIT 1960 FOBT 1960 Flex Sigmoidoscopy - 5y 1960 HIV Screening 1960 DTaP,Tdap,and Td Vaccines (1 - Tdap) 01/17/1978 Zoster Vaccines (2 of 2) 05/15/2021 03/20/2021 COVID-19 Vaccine ( season) 2023 10/22/2021, 03/20/2021, 08/11/2020, Additional history exists Influenza Vaccine (#1) 2023 Pneumococcal Vaccine: Pediatrics (0 to 5 Years) and At-Risk Patients (6 to 64 Years) Aged Out 11/22/2016 No longer eligible based on patient's age to complete this topic HPV Vaccines Aged Out No longer eligi ble based on patient's age to complete this topic Hepatitis A Vaccines Aged Out No long er eligible based on patient's age to complete this topic MMR Vaccines Aged Out No longer eligi ble based on patient's age to complete this topic Meningococcal Vaccine Aged Out No kiek héctor eligible based on patient's age to complete this topic Insurance MEDICARE Care Teams Central Lab Technician Relationship Specialty Start Date End Date Claus Osullivan [address] [place], [place] [id number] PCP - General Internal Medicine 10/26/21
--- OUTSIDE RECORDS SUMMARY | 2024-06-06 19:35 | XMS_ITS | Encounter Summary ---
Author Organization [facility] Address [address] [place] [address] Care Team Providers Care Watch Parts Grinder Name Role Phone Claus Osullivan MD Primary Care Provider [phone] Encounter Details Date Type Department Care Team ( st Contact Info) Description 05/31/2024 Orders Only Anesthesia [address] [place] [address] Mini Mary APRN [address] [place] [address] Spinal stenosis of lumbar region with neurogenic claudication (Primary Dx) Social History Tobacco Use Types Packs/Day Years Used Date Smoking Tobacco: Some Days Cigarettes Comments:Cigar once per myriam h Alcohol Use Standard Drinks/Week Comments Never 0 (1 standard drink = 0.6 oz pur e alcohol) Interpersonal Safety Answer Date Record ed Is there anyone in your life that is hurting or threatening you in anyway? Not on file 05/28/2024 Physical Indicators of Abuse No evidence of phys ical abuse 05/28/2024 Sex and Gender Information Value Date Recorded Sex Assigned at Not on file Legal Sex Male 8:38 AM EDT Gender Identity Male 02/12/2024 1:14 AM EST Sexual Orientation Not on file documented as of this encounter Plan of Treatment Upcoming Encounters Date Type Department Care Team (Latest Contact Info) Description 06/10/2024 11:00 AM EST Office Visit [facility] [address] [place] [address] Mara Valenzuela PA [address] [place] [id number] 06/25/2024 7:45 AM EDT Hospital Encounter [facility] [address] [place] [address], [place] [address] Peng Bravo MD [address] [place] [address] 06/25/2024 7:45 AM EDT Anesthesia Event [facility] [address] [place] [address], [place] [address] Mini Mary, ÁLVARO [address] [place] [address], [place] [phone] 06/25/2024 7:45 AM EDT - 06/25/2024 6:41 PM EDT Surgery [facility] [address] [place] [address] Peng Bravo MD [address] [place] [address] [facility] surgical case- L2-L5 lateral interbodies with percutaneous fixation and laminectomy L3-4 possible extension to L1-2 and T12 to the pelvis 07/08/2024 11:00 AM EDT Follow Up [facility] at [address] [place], [place] [address] Mara Valenzuela PA [address] [place] [address] 08/23/2024 1:00 PM EDT Follow Up [facility] at [address] [place], [place] [address] Mara Valenzuela PA [address] [place] [address] Scheduled Orders Name Type Priority Associated Diagnoses Orde r Schedule Type and screen Is this a pre-operative order? Yes; Preop TS will in 30 days: Type and screen expires 30 days from collection if pt not transfused or in past 3 mos, with no HX of antibodies; Date of surgery: 06/25/2024; Is this a t... Blood Bank Routine Spinal stenosis of lumbar region with neurogenic claudication Expected: 05/31/2024 (Approximate), Expires: 07/30/2024 Scheduled Procedures Name Priority Associated Diagnoses Date/Ti me ARTHRODESIS, ANTERIOR INTERBODY, W/MININMAL DISKECTOMY; LUMBAR High Risk Scoliosis of lumbar region due to degenerative disease of spine in adult Spinal stenosis of lumbar region with radiculopathy Disc displacement, lumbar Spondylosis 06/25/2024 7:45 AM EDT ARTHRODESIS, ANTERIOR INTERBODY, W/MININMAL DISKECTOMY; ADD `L INTERSPACE High Risk Scoliosis of lumbar region due to degenerative disease of spine in adult Spinal stenosis of lumbar region with radiculopathy Disc displacement, lumbar Spondylosis 06/25/2024 7:45 AM EDT LAMINECTOMY, FACETECTOMY & FORAMINOTOMY, 1 SEGMENT; LUMBAR High Risk Scoliosis of lumbar region due to degenerative disease of spine in adult Spinal stenosis of lumbar region with radiculopathy Disc displacement, lumbar Spondylosis 06/25/2024 7:45 AM EDT ARTHRODESIS, POSTERIOR/POSTEROLATERAL TECHNIQUE, SINGLE LEVEL; LUMBAR High Risk Scoliosis of lumbar region due to degenerative disease of spine in adult Spinal stenosis of lumbar region with radiculopathy Disc displacement, lumbar Spondylosis 06/25/2024 7:45 AM EDT ARTHRODESIS, POSTERIOR/POSTEROLATERAL TECHNIQUE, SINGLE LEVEL; ADD `L SEGMENT High Risk Scoliosis of lumbar region due to degenerative disease of spine in adult Spinal stenosis of lumbar region with radiculopathy Disc displacement, lumbar Spondylosis 06/25/2024 7:45 AM EDT ARTHRODESIS,COMB POSTERIOR OR POSTEROLATERAL TECHN W/POSTERIOR INTERBDY TECH INCL LAMINECTMY AND/OR DISKECT High Risk Scoliosis of lumbar region due to degenerative disease of spine in adult Spinal stenosis of lumbar region with radiculopathy Disc displacement, lumbar Spondylosis 06/25/2024 7:45 AM EDT POSTERIOR SEGMENTAL INSTRUMENTATION; 3-6 VERTEBRAL SEGMENTS High Risk Scoliosis of lumbar region due to degenerative disease of spine in adult Spinal stenosis of lumbar region with radiculopathy Disc displacement, lumbar Spondylosis 06/25/2024 7:45 AM EDT ANTERIOR INSTRUMENTATION; 4 TO 7 VERTEBRAL SEGMENTS High Risk Scoliosis of lumbar region due to degenerative disease of spine in adult Spinal stenosis of lumbar region with radiculopathy Disc displacement, lumbar Spondylosis 06/25/2024 7:45 AM EDT PELVIC FIXATION, NON-SACRUM High Risk Scoliosis of lumbar region due to degenerative disease of spine in adult Spinal stenosis of lumbar region with radiculopathy Disc displacement, lumbar Spondylosis 06/25/2024 7:45 AM EDT INSJ BIOMCHN DEV INTERVERTEBRAL DSC SPC W/ARTHRD High Risk Scoliosis of lumbar region due to degenerative disease of spine in adult Spinal stenosis of lumbar region with radiculopathy Disc displacement, lumbar Spondylosis 06/25/2024 7:45 AM EDT AUTOGRAFT, SPINE SURGERY ONLY; LOCAL, SAME INCISION High Risk Scoliosis of lumbar region due to degenerative disease of spine in adult Spinal stenosis of lumbar region with radiculopathy Disc displacement, lumbar Spondylosis 06/25/2024 7:45 AM EDT SOMATOSENSORY TESTS LOWER LIMB High Risk Scoliosis of lumbar region due to degenerative disease of spine in adult Spinal stenosis of lumbar region with radiculopathy Disc displacement, lumbar Spondylosis 06/25/2024 7:45 AM EDT STEREOTACTIC COMPUTER-ASSISTED (NAVIGATIONAL) PROCEDURE; SPINAL High Risk Scoliosis of lumbar region due to degenerative disease of spine in adult Spinal stenosis of lumbar region with radiculopathy Disc displacement, lumbar Spondylosis 06/25/2024 7:45 AM EDT documented as of this encounter Goals Goal Patient Goal Type Associated Problems Recent Progress Patient-Stated? 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 Swimming Coach Or Instructor Goal Care Plan AMB CC POSTERIOR LUMBAR SPINE NOTCHING PRESS OPERATOR PROBLEM Jenifer Tidwell, RN documented as of this encounter Visit Diagnoses Diagnosis Spinal stenosis of lumbar region with neurogenic claudication- Primary Spinal stenosis, lumbar region, with neurogenic claudication Scoliosis of lumbar region due to degenerative disease of spine in adult Spinal stenosis of lumbar region with radiculopathy Spinal stenosis, lumbar region, without neurogenic claudication Disc displacement, lumbar Displacement of lumbar intervertebral disc without myelopathy Spondylosis Spondylosis of unspecified site without mention of myelopathy documented in this encounter Additional Health Concerns Active Problems Noted Date Diagnosed Date AMB CC POSTERIOR LUMBAR SPINE NOTCHING PRESS OPERATOR PRO AGUAYO 04/22/2024 documented as of this encounter Care Teams Watch Parts Grinder Relationship Specialty Start Date End Date Claus Osullivan MD [address] [phone] PCP - General Internal Medicine 03/29/24 documented as of this encounter
--- OUTSIDE RECORDS SUMMARY | 2024-06-06 19:35 | XMS_ITS | Clinical Summary ---
Author Organization [address] Address [address] [place] [phone] Phone Care Team Providers Care Bicycle Repairer Name Role Phone Claus Osullivan MD Primary Care Provider [phone] Allergies Active Allergy Reactions Criticality Noted Date Comments Aripiprazole Other (See Comments) Medium 04/22/2024 hyperglycemia Insulin Glargine Other (See Comments) Medium Weight gain Semaglutide Nausea And Vomiting Low 04/22/2024 Brexpiprazole Other (See Comments) Medium 04/22/2024 hyperglycemia Medications amLODIPine (NORVASC) 10 mg tablet Take 1 tablet (10 mg total) by mouth daily. Active armodafiniL (NUVIGIL) 50 mg tablet Take 1 tablet (50 mg total) by mouth every morning. 4 Active atorvastatin (LIPITOR) 40 mg tablet Take 1 tablet (40 mg total) by mouth daily. Active carvediloL (COREG) 25 mg Immediate Release tablet Take 1 tablet (25 mg total) by mouth 2 (two) times daily with breakfast and dinner. Active clonazePAM (KLONOPIN) 1 mg tablet Take 1 tablet (1 mg total) by mouth 2 (two) times daily. Active JARDIANCE 25 mg tablet Take 1 tablet (25 mg total) by mouth daily. 4 Active FLUoxetine (PROZAC) 20 mg capsule Take 1 capsule (20 mg total) by mouth 2 (two) times daily. 4 Active fluticasone propionate (FLONASE) 50 mcg/actuation nasal spray Use 1 spray in each nostril 2 (two) times daily. Active gabapentin (NEURONTIN) 600 mg tablet Take 1 tablet (600 mg total) by mouth 3 times a day. 4 Active hydrALAZINE (APRESOLINE) 50 mg tablet Take 1 tablet (50 mg total) by mouth 2 (two) times daily. Active hydroCHLOROthiazi de (HYDRODIURIL) 25 mg tablet Take 1 tablet (25 mg total) by mouth daily. Active LANTUS SOLOSTAR U-100 INSULIN 100 UNIT/ML (3 ML) SUBCUTANEOUS PEN Inject under the skin daily. Active irbesartan (AVAPRO) 300 mg tablet Take 1 tablet (300 mg total) by mouth daily. Active metFORMIN (GLUCOPHAGE) 1000 mg tablet Take 1 tablet (1,000 mg total) by mouth 2 (two) times daily with breakfast and dinner. Active mirtazapine (REMERON) 7.5 mg tablet Take 1 tablet (7.5 mg total) by mouth nightly. 4 Active oxyCODONE (ROXICODONE) 15 mg Immediate Release tablet Take 1 tablet (15 mg total) by mouth every 6 hours. 4 Active morphine (MS CONTIN) 30 mg 12 hr extended release tablet Take 1 tablet (30 mg total) by mouth every 12 (twelve) hours. 4 Active valsartan (DIOVAN) 320 mg tablet Take 1 tablet (320 mg total) by mouth daily. Active MULTIVITAMIN ORAL Take 1 tablet by mouth daily. Active lisinopriL (PRINIVIL,ZESTRIL ) 2.5 mg tablet Take 1 tablet (2.5 mg total) by mouth daily. Active Encounters Date Type Department Care Team Description 05/31/2024 8:30 AM EST Telephone [facility]MISS[facility] [place] [address] [place], [place] [id number] Peng Bravo MD Mitchell, Mary, APRN 05/31/2024 Orders Only Anesthesia [address] [place] [address], [place] [address] Mini Mary APRN Spinal stenosis of lumbar region with neurogenic claudication (Primary Dx) 05/28/2024 1:00 PM EST Office Visit Sp[facility] 1 [facility], [place] [id number] Danny Schmitt MD Radiculopathy, unspecified spinal region (Primary Dx) 05/09/2024 Telephone Spine Center at [address] [place] [address] Jenifer Badillo, RN Follow-up 04/26/2024 Telephone Spine [facility] at [address] [place] [address] Jenifer Badillo, RN Follow-up 04/22/2024 Orders Only Spine Center at [address] [place] [address] Ally Irwin APRN Chronic, continuous use of opioids (Primary Dx) 04/22/2024 Telephone Spine Center at [address] [place] [address] Jenifer Badillo, RN Optimization Health Assessment 04/17/2024 8:07 AM EST - 04/17/2024 11:59 PM EST Hospital Encounter [facility] CT Scan [address] [place] [address] Azul Robledo PA Pre-op evaluation Discharge Disposition: Home or Self Care 03/25/2024 Telephone Neurosurgery at [address] [facility] [address] [facility] [place] [address] Peng Bravo MD Advice Only (Booking sheet) 03/11/2024 11:20 AM EST - 03/11/2024 11:59 PM EST Hospital Encounter [facility] Spine Center Xray [address] [place] [address] Peng Bravo MD Radiculopathy, unspecified spinal region Discharge Disposition: Home or Self Care 03/11/2024 11:00 AM EST Office Visit Sp[facility] Center at [address] [place] [address] Peng Bravo MD Radiculopathy, unspecified spinal region (Primary Dx) from Last 3 Months Social History Tobacco Use Types Packs/Day Years Used Date Smoking Tobacco: Some Days Cigarettes Tobacco Cessation:Ready to Q uit: Not Asked; Counseling Given: Not Answered Comments:Cigar once per month Alcohol Use Standard Drinks/Week Comments Never 0 [...] AM EST Sexual Orientation Not on file Last Filed Vital Signs Vital Sign Reading Time Taken Comments Blood Pressure 123/72 05/28/2024 1:06 PM EST Pulse 79 05/28/2024 1:06 PM EST Temperature - - Respiratory Rate - - Oxygen Saturation - - Inhaled Oxygen Concentration - - Weight 92.5 kg (203 lb 14.8 oz) 05/28/2024 1:06 PM EST Height 181.6 cm (5' 11.5 ) 05/28/2024 1:06 PM ES T Body Mass Index 28.05 05/28/2024 1:06 PM EST Plan of Treatment Upcoming Encounters Date Type Department Care Team (Latest Contact Info) Description 06/10/2024 11:00 AM EST [facility] 6th [place] [address] Mara Valenzuela PA [address] [facility] [address] [place] [phone] 06/25/2024 7:45 AM EDT Hospital Encounter [facility] [address] [place] [address], [place] [phone] Peng Bravo MD [address] [place] [address] [address] [place] [phone] 06/25/2024 7:45 AM EDT Anesthesia Event [facility] [place] [address] Usman Mini, RECYCLING ASSISTANT [address] [place] [phone] 06/25/2024 7:45 AM EDT - 06/25/2024 6:41 PM EDT Surgery [facility] [address] [place] [address], [place] [address] Peng Bravo MD [address] [place] [phone] eras- oa- [facility] surgical case- L2-L5 lateral interbodies with percutaneous fixation and laminectomy L3-4 possible extension to L1-2 and T12 to the pelvis 07/08/2024 11:00 AM EDT Follow Up Spine Center at [address] [place] [address] Mara Valenzuela PA [address] [place] [phone] 08/23/2024 1:00 PM EDT Follow Up Spine Center at [address] [place] [address] Mara Valenzuela, AVA [address] [place] [address] Scheduled Procedures Name Priority Associated Diagnoses Date/Ti [...] displacement, lumbar Spondylosis 06/25/2024 7:45 AM EDT Health Maintenance Due Date Last Done Comments HIV screening 01/17/1973 Hepatitis C screening 01/17/1978 Tetanus adult (Td q 10,TDAP once) 1980 Lipid disorder screening 2000 Colon cancer screening, Colonoscopy 01/17/2005 Diabetes screening 01/17/2005 Lung Cancer Screening 01/17/2010 Shingles vaccine (Shingrix) (1 of 2 - Shingrix (RZV) 2 Dose Standard Series) 01/17/2010 Pneumococcal Vaccine (50+ ye ars) (2 of 2 - PCV) 11/22/2017 11/22/2016 RSV Discussion (1 - Risk 60- 74 years 1-dose series) 2020 Influenza vaccine 11/09/2023 Covid-19 vaccine series (2 - 2023- season) 2023 10/22/2021 Meningococcal Vaccine Aged Out No kike héctor eligible based on patient's age to complete this topic Goals Goal Patient Goal Type Associated Problems Recent Progress Patient-Stated? 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 Similar T12 compression fracture superior end plate depression on the right. 2. At L3-L4, slight retrolisthesis L3-L4, large partially calcified central disc herniation. Facet arthropathy. Prominent dorsal epidural fat. Moderate bilateral neural foraminal stenosis, left greater than right. Severe spinal canal stenosis. These findings are better appreciated on MRI lumbar spine 01/15/2024 particularly (image 23 series 6) 3. At L4-L5, disc bulge eccentric to the left with small central disc herniation, rightward curvature, facet arthropathy. Mild right and severe left neural foraminal stenosis. Moderate canal stenosis. There is likely contact of the exiting left L4 nerve root. 4. Additional degenerative changes as described above. [facility] Radiology Notify System Classification: Routine. Report initiated by: ??Garcia Baig DO Reported and signed by: John Merecr MD [facility] Narrative 04/17/2024 1:[address] LUMBAR SPINE WO IV CONTRAST performed on 04/17/2024 8:27 AM INDICATION: Surgical planning. COMPARISON: Scoliosis survey 03/11/2024, outside facility MRI lumbar spine 01/15/2024. TECHNIQUE: ??CT of the lumbar spine was performed without contrast. Sagittal and coronal reformats were obtained. FINDINGS: For the purposes of this study, I am assuming the inferior most complete disc space represents L5-S1 with a nonrib-bearing T12 vertebrae. There is levoconvex curvature of the upper lumbar spine centered at L2. Mild left lateral listhesis L3 on L4. Slight retrolisthesis of L2 on L3 and L3 on L4. Mild dextrocurvature of the lower lumbar spine. Compression fractures/superior end plate depression at T12 again noted on the right.. Vertebral body heights are otherwise normal. Multilevel disc degeneration worse at L2-L3 on the right with spurring, sclerotic endplate changes and vacuum phenomenon. At T12-L1, disc bulge and tiny central disc protrusion. Facet arthropathy. Mild bilateral neural foraminal stenosis. Mild spinal canal stenosis. At L1-L2, disc bulge with small central-right central disc protrusion. Facet arthropathy. Mild bilateral neural foraminal stenosis. Mild spinal canal stenosis. At L2-L3, diffuse disc bulge. Facet arthropathy. Prominent dorsal epidural fat Moderate . Slight retrolisthesis of L2 on L3 and leftward curvature. Moderate right neural foraminal stenosis. Moderate spinal canal stenosis. At L3-L4, slight retrolisthesis L3-L4, large partially calcified central disc herniation. Facet arthropathy. Prominent dorsal epidural fat. Moderate bilateral neural foraminal stenosis, left greater than right. Severe spinal canal stenosis. These findings are better appreciated on MRI lumbar spine 01/15/2024 particularly (image 23 series 6) At L4-L5, disc bulge eccentric to the left with small central disc herniation, rightward curvature, facet arthropathy. Mild right and severe left neural foraminal stenosis. Moderate canal stenosis. There is likely contact of the exiting left L4 nerve root. At L5-S1, disc-osteophyte complex. Facet arthropathy. Mild bilateral right neural foraminal stenosis. Mild spinal canal stenosis. Visualized abdomen and pelvis: No intraabdominal or pelvic pathology identified. Note is made of atherosclerotic calcifications in the abdominal aorta and common iliac vessels. Procedure Note John Mercer MD - 04/17/2024 CT LUMBAR SPINE WO IV CONTRAST performed on 04/17/2024 8:27 AM INDICATION: Surgical planning. COMPARISON: Scoliosis survey 03/11/2024, outside facility MRI lumbar spine01/15/2024. TECHNIQUE: CT of the lumbar spine was performed without contrast.Sagittal and coronal reformats were obtained. FINDINGS: For the purposes of this study, I am assuming the inferior most completedisc space represents L5-S1 with a nonrib-bearing T12 vertebrae. There is levoconvex curvature of the upper lumbar spine centered at L2.Mild left lateral listhesis L3 on L4. Slight retrolisthesis of L2 on L3and L3 on L4. Mild dextrocurvature of the lower lumbar spine. Compression fractures/superior end plate depression at T12 again noted onthe right.. Vertebral body heights are otherwise normal. Multilevel disc degeneration worse at L2-L3 on the right with spurring,sclerotic endplate changes and vacuum phenomenon. At T12-L1, disc bulge and tiny central disc protrusion. Facet arthropathy.Mild bilateral neural foraminal stenosis. Mild spinal canal stenosis. At L1-L2, disc bulge with small central-right central disc protrusion.Facet arthropathy. Mild bilateral neural foraminal stenosis. Mild spinalcanal stenosis. At L2-L3, diffuse disc bulge. Facet arthropathy. Prominent dorsal epiduralfat Moderate . Slight retrolisthesis of L2 on L3 and leftward curvature.Moderate right neural foraminal stenosis. Moderate spinal canalstenosis. At L3-L4, slight retrolisthesis L3-L4, large partially calcified centraldisc herniation. Facet arthropathy. Prominent dorsal epidural fat.Moderate bilateral neural foraminal stenosis, left greater than right.Severe spinal canal stenosis. These findings are better appreciated on MRIlumbar spine 01/15/2024 particularly (image 23 series 6) At L4-L5, disc bulge eccentric to the left with small central discherniation, rightward curvature, facet arthropathy. Mild right and severeleft neural foraminal stenosis. Moderate canal stenosis. There is likelycontact of the exiting left L4 nerve root. At L5-S1, disc-osteophyte complex. Facet arthropathy. Mild bilateral rightneural foraminal stenosis. Mild spinal canal stenosis. Visualized abdomen and pelvis: No intraabdominal or pelvic pathologyidentified. Note is made of atherosclerotic calcifications in the abdominal aorta andcommon iliac vessels. IMPRESSION: 1. Similar T12 compression fracture superior end plate depression on theright. 2. At L3-L4, slight retrolisthesis L3-L4, large partially calcifiedcentral disc herniation. Facet arthropathy. Prominent dorsal epidural fat.Moderate bilateral neural foraminal stenosis, left greater than right.Severe spinal canal stenosis. These findings are better appreciated on MRIlumbar spine 01/15/2024 particularly (image 23 series 6) 3. At L4-L5, disc bulge eccentric to the left with small central discherniation, rightward curvature, facet arthropathy. Mild right and severeleft neural foraminal stenosis. Moderate canal stenosis. There is likelycontact of the exiting left L4 nerve root. 4. Additional degenerative changes as described above. [facility] Radiology Notify System Classification: Routine. Report initiated by: Garcia Baig DO Reported and signed by: John Mercer MD [facility] us Azul ESCALANTE IMG CT ORDERABLES Final Result * XR SCOLIOSIS/SURVEY AP OR PA AND LAT ENTIRE SPINE ([facility]) (03/11/2024 11:28 AM EST) Anatomical Region Laterality Modality C-spine, T-spine, L-spine, Spine, Ortho Spine Digital Radiography 03/11/2024 3:19 PM EST Impressions 03/11/2024 3:35 PM EST 1. Mild lumbar levoscoliosis. 2. Cervicothoracolumbar scoliosis. [facility] Notify [facility] Classification: Routine. Report initiated by: ??Pete Wadsworth MD Reported and signed by: Darshan Knowles MD [facility] Narrative 03/11/2024 3:35 PM EST XR SCOLIOSIS/SURVEY AP OR PA AND LAT ENT SPINE ([facility]) 03/11/2024 11:28 AM INDICATION: scoliosis COMPARISON: Outside facility MRI lumbar spine 01/15/2024 FINDINGS: There is mild lumbar levoscoliosis with a Mendoza angle of 16 degrees centered at L2-L3. There is a neutral coronal and positive sagittal balance (8 cm). There is no pelvic tilt. Cervical spine: Mild cervical straightening. Vertebral body heights are preserved. Mild multilevel spondylosis. Thoracic spine: Normal thoracic alignment. The visualized thoracic body heights are preserved. Mild lower thoracic spondylosis. Lumbar spine: Demonstrate a grade 1 retrolisthesis of L2-L3 and L3-L4. Lumbar vertebral body heights are preserved. Multilevel lumbar spondylosis. Status post median sternotomy and CABG. Surgical clips in the right upper abdominal quadrant. Procedure Note Darshan Knowles MD - 03/11/2024 XR SCOLIOSIS/SURVEY AP OR PA AND LAT ENT SPINE ([facility]) 1:28 AM INDICATION: scoliosis COMPARISON: Outside facility MRI lumbar spine 01/15/2024 FINDINGS: There is mild lumbar levoscoliosis with a Mendoza angle of 16 degreescentered at L2-L3. There is a neutral coronal and positive sagittalbalance (8 cm). There is no pelvic tilt. Cervical spine: Mild cervical straightening. Vertebral body heights arepreserved. Mild multilevel spondylosis. Thoracic spine: Normal thoracic alignment. The visualized thoracic bodyheights are preserved. Mild lower thoracic spondylosis. Lumbar spine: Demonstrate a grade 1 retrolisthesis of L2-L3 and L3-L4.Lumbar vertebral body heights are preserved. Multilevel lumbarspondylosis. Status post median sternotomy and CABG. Surgical clips in the right upperabdominal quadrant. IMPRESSION: 1. Mild lumbar levoscoliosis. 2. Cervicothoracolumbar scoliosis. [facility] Notify [facility] Classification: Routine. 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
--- OUTSIDE RECORDS SUMMARY | 2024-06-06 19:35 | XMS_ITS | Encounter Summary ---
Author Organization [facility] Address [address] [place] [address] Care Team Providers Care Bond Broker Name Role Phone Claus Osullivan MD Primary Care Provider [phone] Encounter Details Date Type Department Care Team (Late st Contact Info) Description 05/31/2024 8:30 AM EST Telephone [facility] PREADMISSION TESTING [address] [id number] Peng Bravo MD [address] [phone] Mini Mary APRN [address] [place] [address] Anesthesia Record Procedure Summary Procedure Name Responsible Anesthesiologist Anesthesia Start Time Anesthesia Stop Time eras- oa- [facility] surgical case- L2-L5 lateral interbodies with percutaneous fixation and laminectomy L3-4 possible extension to L1-2 and T12 to the pelvis (Lumbar) Events No events on file. Meds * Agents No agents on file. * Blood No blood administrations on file. Lines, Drains, and Airways No LDAs on file. documented in this encounter Social History Tobacco Use Types Packs/Day Years [...] Office Visit Sp[facility] Center at [address] [facility] 6th [place] [address] Mara Valenzuela PA [address] [facility] [address] [place] [phone] 06/25/2024 7:45 AM EDT Hospital Encounter [facility] [address] [place] [address], [place] [address] Peng Bravo MD [address] [facility] [address] [place] [phone] 06/25/2024 7:45 AM EDT Anesthesia Event [facility] [address] [place] [address], [place] [address] Mini Mary, ÁLVARO [address] [place] [phone] 06/25/2024 7:45 AM EDT - 06/25/2024 6:41 PM EDT Surgery [facility] [address] [place] [address], [place] [address] Peng Bravo MD [address] [facility] [address] [place] [phone] eras- [facility] surgical case- L2-L5 lateral interbodies with percutaneous fixation and laminectomy L3-4 possible extension to L1-2 and T12 to the pelvis 07/08/2024 11:00 AM EDT Follow Up Spine Center at [address] [place] [address] Mara Valenzuela PA [address] [place] [phone] 08/23/2024 1:00 PM EDT Follow Up Spine Center at [address] [place] [address] Mara Valenzuela PA [address] [place] [address] Scheduled Procedures Name Priority Associated Diagnoses Date/Ti [...] Recent Progress Patient-Stated? 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 Molecular Biology Director Goal Care Plan AMB CC POSTERIOR LUMBAR SPINE ELECTRICIAN TELEPHONE PROBLEM No Jenifer Badillo RN documented as of this encounter Visit Diagnoses Not on filedocumented in this encounter Additional Health Concerns Active Problems Noted Date Diagnosed Date AMB CC POSTERIOR LUMBAR SPINE ELECTRICIAN TELEPHONE PRO BLEM 04/22/2024 documented as of this encounter Care Teams Bond Broker Relationship Specialty Start Date End Date Claus Osullivan MD [address] [phone] PCP - General Internal Medicine 03/29/24 documented as of this encounter
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
--- OUTSIDE RECORDS SUMMARY | 2024-06-06 19:37 | XMS_ITS | Encounter Summary ---
Author Organization [facility] and [facility] Address [address] [place] [phone] Care Team Providers Care Football Coach Name Role Phone Claus Osullivan MD Primary Care Provider Reason for Referral * Imaging (Routine) - New Request Specialty Diagnoses / Procedures Referred By Contac t Referred To Contact Diagnostic Radiology Procedures MRI Lumbar Spine with and without IV Contrast [facility] SCHEDULING [address] [place] [address] Phone: tel: Referral ID Status Reason Start Date Expiration Date V isits Requested Visits Authorized [id number] New Request 02/07/2024 02/06/2025 1 1 Encounter Details Date Type Department Care Team (Late st Contact Info) Description 02/07/2024 Scanned Document [facility] SCHEDULING [address] [place] [address] Aman Stanford . Social History Tobacco Use Types Packs/Day Years Used Date Smoking Tobacco: Never Assessed Sex and Gender Information Value Date Recorded [...] Drive [address] [place] [address] Mara Valenzuela PA [address] [place] [phone] 06/25/2024 7:45 AM EDT Hospital Encounter [facility] [address] [place] [address], [place] [address] Peng Bravo MD [address] [place] [phone] 06/25/2024 7:45 AM EDT Anesthesia Event [facility] [address] [place] [address], [place] [address] Mini Mary, ÁLVARO [address] [place] [address], [place] [phone] 06/25/2024 7:45 AM EDT - 06/25/2024 6:41 PM EDT Surgery [facility] [address] [place] [address] Peng Bravo MD [address] [place] [phone] [facility] surgical case- L2-L5 lateral interbodies with percutaneous fixation and laminectomy L3-4 possible extension to L1-2 and T12 to the pelvis 07/08/2024 11:00 AM EDT Follow Up [facility] at [address] [place] [address] Mara Valenzuela PA [address] [place] [phone] 08/23/2024 1:00 PM EDT Follow Up [facility] at [address] [place] [address] Mara Valenzuela PA [address] [place] [phone] Scheduled Procedures Name Priority Associated Diagnoses Date/Ti [...] AM EDT documented as of this encounter Procedures Procedure Name Priority Date/Time Associated Diagnosis Comments MRI LUMBAR SPINE W WO IV CONTRAST Routine 01/15/2024 8:45 AM EDT documented in this encounter Results * MRI Lumbar Spine with and without IV Contrast (01/15/2024 8:45 AM EDT) Anatomical Region Laterality Modality L-spine, Spine, Ortho L-spine Ma gnetic Resonance us Historical Provider IMG MRI ORDERABLES Final Res ult documented in this encounter Visit Diagnoses Not on filedocumented in this encounter Care Teams Football Coach Relationship Specialty Start Date End Date Claus Osullivan MD [address] [place] [phone] PCP - General Internal Medicine 03/29/24 documented as of this encounter
--- OUTSIDE RECORDS SUMMARY | 2024-06-06 19:37 | XMS_ITS | Clinical Summary ---
Author Organization [facility] Address [address] [place], [place] [address] Phone Care Team Providers Care Mental Health Counselor Name Role Phone Claus Osullivan MD Primary Care Provider [phone] Allergies Active Allergy Reactions Criticality Noted Date Comments Dave Inhibitors 01/26/2024 Aripiprazole 01/26/2024 Abilify Semaglutide 01/26/2024 Ozempic (0.25 Or 0.5 Mg-dose Medications amLODIPine (NORVASC) 10 mg tablet Take 10 mg by mouth daily. Active atorvastatin (LIPITOR) 40 mg tablet Take 40 mg by mouth daily. Active carvediloL (COREG) 25 mg tablet Take 1 Tablet by mouth 2 times daily (with meals). 08/24/2021 Active clonazePAM (KlonoPIN) 1 mg tablet Take 1 mg by mouth 2 times daily as needed. Active empagliflozin (Jardiance) 25 mg tablet Take by mouth daily. Active FLUoxetine (PROzac) 20 mg capsule Take 2 Capsules by mouth daily. Active gabapentin (NEURONTIN) 600 mg tablet Take 1 Tablet by mouth 3 times daily. Active hydrALAZINE (APRESOLINE) 50 mg tablet Take 50 mg by mouth at bedtime. Active hydroCHLOROthia zide (HYDRODIURIL) 25 mg tablet Take 25 mg by mouth daily. Active lisinopriL (PRINIVIL,ZESTR IL) 2.5 mg tablet Take 1 Tablet by mouth daily. Active metFORMIN (GLUCOPHAGE) 1,000 mg tablet Take 1,000 mg by mouth 2 times daily (with meals). Active mirtazapine (REMERON) 7.5 mg tablet Take 2 Tablets by mouth at bedtime. Active naloxone (NARCAN) 4 mg/0.1 mL nasal spray by Nasal route. Active oxyCODONE (ROXICODONE) 15 mg immediate release tablet Take 1 Tablet by mouth 4 times daily. Active oxyCODONE myristate (Xtampza ER) 18 mg capsule,sprinkl e,ER 12hr tmprr Take by mouth every 12 hours. Active Active Problems Problem Noted Date Diagnosed Date Hypertension 08/17/2020 Overview (04/29/2024): Last Assessment & Plan: We will continue current regimen. Coronary artery disease 08/17/2020 Overview (04/29/2024): Last Assessment & Plan: Status post CABG in 2017. We will continue current regimen. Planning for stress test. Encounters Date Type Department Care Team Description 04/26/2024 Telephone [facility] - [facility] [address] [facility] [address] [place] [address] Kevin Lu MD Pre-op Visit from Last 3 Months Immunizations Name Administration Dates Next Due Pfizer SARS-CoV-2 COVID-19, mRNA, LNP-S, preservative free 10/22/2021 Family History Medical History Relation Name Comments Heart attack Brother Relation Name Status Comments Brother Social History Tobacco Use Types Packs/Day Years Used Date Smoking Tobacco: Former Cigarettes Q uit: 04/10/2005 Smokeless Tobacco: Never Alcohol Use Standard Drinks/Week Comments Not Currently 0 (1 standard drink = 0.6 oz pur e alcohol) Sex and Gender Information Value Date Recorded Sex Assigned at Not on file Legal Sex Male 10:15 PM EST Gender Identity Not on file Sexual Orientation Not on file Obstetrics History Last Filed Vital Signs Vital Sign Reading Time Taken Comments Blood Pressure 128/74 12/01/2021 9:20 AM EDT Sitting L Arm Pulse 70 12/01/2021 9:20 AM EDT Temperature - - Respiratory Rate - - Oxygen Saturation - - Inhaled Oxygen Concentration - - Weight 109 kg (240 lb 9.6 oz) 9:20 AM EDT Height 182.9 cm (6') 12/01/2021 9:20 AM EDT Body Mass Index 32.63 12/01/2021 9:20 AM EDT Plan of Treatment Upcoming Encounters Date Type Department Care Team (Late st Contact Info) Description 06/14/2024 9:40 AM EST Consult [facility] - [facility] [address] [facility] [address] [place] [address] Shamika Pineda, COCO [address] [facility] [address] [place] [address] 07/02/2024 1:00 PM EDT Hospital Encounter [facility] [address] [id number] Nicholas Coughlin DO [address] [facility] [address] [place] [address] Health Maintenance Due Date Last Done Comments DTaP,Tdap,and Td Vaccines (1 - Tdap) 01/17/1979 Pneumococcal Vaccine: 50+ Ye ars (1 of 1 - PCV) 01/17/2010 Zoster Vaccines (1 of 2) 01/17/2010 RSV Immunization Patients 60 + Years Old (1 - Risk 60-74 years 1-dose series) 2020 Cholesterol Screening (Lipid Panel) 03/12/2022 Colorectal Cancer Screening: Colonoscopy 03/12/2022 Depression Screening 03/12/2022 HIV Screening 03/12/2022 Hepatitis C Screening 03/12/2022 Medicare Annual Wellness Visit 03/12/2022 Social Influencers of Health Screening 03/12/2022 Hypertension/CHF/CAD Annual BMP Blood Test 03/20/2022 COVID-19 Vaccine (2 - 2023-2 5 season) 2023 10/22/2021 Influenza Vaccine (#1) 2023 HIB Vaccines Aged Out No longer eligi ble based on patient's age to complete this topic HPV Vaccines Aged Out No longer eligi ble based on patient's age to complete this topic Hepatitis A Vaccines Aged Out No long er eligible based on patient's age to complete this topic Hepatitis B Vaccines Aged Out No long er eligible based on patient's age to complete this topic IPV Vaccines Aged Out No longer eligi ble based on patient's age to complete this topic MMR Vaccines Aged Out No longer eligi ble based on patient's age to complete this topic Meningococcal ACWY Vaccine Aged Out N o longer eligible based on patient's age to complete this topic Meningococcal B Vacine Aged Out No lo nger eligible based on patient's age to complete this topic Pneumococcal Vaccine: Pediat rics (0 to 5 Years) and At-Risk Patients (6 to 64 Years) Aged Out No longer eligi ble based on patient's age to complete this topic RSV Immunization Patients Un sandra 20 months Aged Out No longer eligible b ased on patient's age to complete this topic Varicella Vaccines Aged Out No longer eligible based on patient's age to complete this topic Insurance [employer] MEDICARE Care Teams Mental Health Counselor Relationship Specialty Start Date End Date Claus Osullivan MD PCP - General 07/15/16
--- OUTSIDE RECORDS SUMMARY | 2024-06-06 19:37 | XMS_ITS | Clinical Summary ---
Author Organization [facility] Address [address] [place] [address] Care Team Providers Care Home Health Lpn Name Role Phone Claus Osullivan MD Primary Care Provider Unavail able Social History Tobacco Use Types Packs/Day Years Used Date Smoking Tobacco: Never Assessed Sex and Gender Information Value Date Recorded Sex Assigned at Not on file Gender Identity Not on file Sexual Orientation Not on file Job Start Date Occupation Industry Not on file Not on file Not on file Plan of Treatment Health Maintenance Due Date Last Done Comments Hepatitis C Screening 1960 Depression Screening 1972 Preventative Health Evaluation 01/17/1978 DTap / Tdap / Td (1 - Tdap) 01/17/1979 Colon Cancer Screening (Colonoscopy) 01/17/2005 Shingrix-Zoster Vaccine (1 of 2) 01/17/2010 COVID-19 Vaccine (2 - 2023-2 5 season) 2023 10/22/2021 Influenza Vaccine (#1) 2023 Pneumococcal Vaccine (2 of 2 - PCV) 01/17/2025 11/22/2016 RSV Adult > 60+ Yrs or Pregn ant (1 - 1-dose 75+ series) 01/17/2035 Pneumococcal Vaccine Aged Out 11/22/2016 No long er eligible based on patient's age to complete this topic Hepatitis B Vaccines Aged Out No long er eligible based on patient's age to complete this topic RSV Ped < 20 months Aged Out No longe r eligible based on patient's age to complete this topic Care Teams Home Health Lpn Relationship Specialty Start Date End Date Claus Osullivan MD PCP - General Internal Medicine 08/10/20
== END 2024-06-06 17:05 | disposition home or self-care (01) ==
LOC: HO.HOP 17:04
PROVIDERS: PCP Internal Medicine; Visit Provider Psychiatry & Neurology Psychiatry
DX: F33.9 Major depressive disorder, recurrent, unspecified (principal); F43.10 Post-traumatic stress disorder, unspecified; M54.16 Radiculopathy, lumbar region
CPT/HCPCS: 99213

== ENCOUNTER 2024-11-07 10:46 | Outpatient (AMB) | payer OTHER, SELFPAY ==
--- OUTSIDE RECORDS SUMMARY | 2024-11-07 11:36 | XMS_ITS | Clinical Summary ---
Author Organization [facility] Address [address] [place] [address] Care Team Providers Care Inspector Receiving Name Role Phone Claus Osullivan MD Primary [...] 5 season) 2023 10/22/2021 Influenza Vaccine (#1) 2024 Pneumococcal Vaccine (2 of 2 - PCV) [...] age to complete this topic Care Teams Inspector Receiving Relationship Specialty Start Date End Date Claus Osullivan MD PCP - General Internal Medicine 08/10/20
--- OUTSIDE RECORDS SUMMARY | 2024-11-07 11:36 | XMS_ITS | Clinical Summary ---
Author Organization [facility] [address] [facility] Address [address] [place] [address] Phone Care Team Providers Care Small Package And Bundle Sorter Clerk Name Role Phone Claus Osullivan MD Primary Care Provider [phone] Allergies Active Allergy Reactions Criticality Noted Date [...] mouth 2 (two) times daily. 4 Active gabapentin (NEURONTIN) 600 mg tablet Take 1 tablet (600 mg total) by mouth 3 times a day. 4 Active metFORMIN (GLUCOPHAGE) 1000 mg tablet Take 1 tablet (1,000 mg total) by mouth 2 (two) times daily with breakfast and dinner. Active mirtazapine (REMERON) 7.5 mg tablet Take 1 tablet (7.5 mg total) by mouth nightly. 4 Active morphine (MS CONTIN) 30 mg 12 hr extended release tablet Take 1 tablet (30 mg total) by mouth every 12 (twelve) hours. 4 Active MULTIVITAMIN ORAL Take 1 tablet by mouth daily. Active lisinopriL (PRINIVIL,ZESTR IL) 2.5 mg tablet Take 1 tablet (2.5 mg total) by mouth daily. Active bedside commode 3 in 1 commode 5 Active irbesartan (AVAPRO) 300 mg tablet Take 1 tablet (300 mg total) by mouth daily. Defer to prescriber 5 Active hydrALAZINE (APRESOLINE) 50 mg tablet Take 1 tablet (50 mg total) by mouth 2 (two) times daily. 5 Active hydroCHLOROthia zide (HYDRODIURIL) 25 mg tablet Take 1 tablet (25 mg total) by mouth daily. 5 Active valsartan (DIOVAN) 320 mg tablet Take 1 tablet (320 mg total) by mouth daily. Defer to prescriber 5 Active polyethylene glycol (MIRALAX) 17 gram packet Take 1 packet (17 g total) by mouth daily. Mix in 8 ounces of water, juice, soda, coffee or tea prior to taking. 14 each 06/29/2024 10:57 AM EDT 5 Active senna (SENOKOT) 8.6 mg tablet Take 1 tablet (8.6 mg total) by mouth 2 (two) times daily. 30 tablet 5 Active naloxone (NARCAN) 4 mg/actuation nasal spray Use 1 spray in 1 nostril for suspected opioid overdose. May repeat in 2 minutes in other nostril with new device if minimal or no response. 2 each 06/29/2024 10:57 AM EDT 5 Active walker Misc Use as directed. 5 Active oxyCODONE (ROXICODONE) 5 mg Immediate Release tablet Take 1-2 tablets (5-10 mg total) by mouth every 8 (eight) hours as needed for pain. 1 tablets for moderate pain. 2 tablets for severe pain. Please continue to wean down as able. 21 tablet 5 Active Active Problems Problem Noted Date Diagnosed Date Shortness of breath 07/04/2024 Tachycardia 07/04/2024 Lumbar foraminal stenosis 06/25/2024 Encounters Date Type Department Care Team Description 09/25/2024 Telephone Orthopaedics & Rehabilitation at [address] [facility] [address] [facility] [place] [address] Jessy Zepeda CPHT Forms 09/18/2024 11:13 AM EDT - 09/18/2024 11:59 PM EDT Hospital Encounter [facility] Spine Center Xray [address] [place] [address] Peng Bravo MD S/P lumbar fusion Discharge Disposition: Home or Self Care 09/18/2024 11:00 AM EDT Follow Up Spine Center at [address] [place] [address] Peng Bravo MD S/P lumbar fusion (Primary Dx); Lower thoracic back pain 08/23/2024 1:02 PM EDT - 08/23/2024 11:59 PM EDT Hospital Encounter [facility] Spine Center Xray [address] [place] [address] Mara Mustafa PA S/P lumbar fusion Discharge Disposition: Home or Self Care 08/23/2024 1:00 PM EDT Follow Up Spine Center at [address] [place] [address] Peng Bravo MD Mohr-Tonachi ni, Gaia, PA S/P lumbar fusion (Primary Dx) from Last 3 Months Social History Tobacco Use Types Packs/Day Years Used Date Smoking Tobacco: Former Cigarettes Tobacco Cessation:Counseling Given: Not Answered Comments:Cigar once per month Alcohol Use Standard Drinks/Week Comments Never 0 (1 standard drink = 0.6 oz pur e alcohol) [facility] Utilities Answer Date Recorded In the past 12 months has e electric, gas, oil, or water company threatened to shut off services in your home? No 06/26/2024 AUDIT-C Answer Date Recorded Q1: How often do you have a drink containing alc ohol? Monthly or less 06/26/2024 Q2: How many drinks containi ng alcohol do you have on a typical day when you are drinking? 1 or 2 06/26/2024 Q3: How often do you have si x or more drinks on one occasion? Never 06/26/2024 PHQ-2 Answer Date Recorded PHQ-2 Total Score 1 06/26/2024 Hunger Vital Sign Answer Date Recorded Within the past 12 months, y ou worried that your food would run out before you got the money to buy more. Never true 06/27/19 25 Within the past 12 months, t he food you bought just didn't last and you didn't have money to get more. Never true 06/26/2024 PRAPARE - Transportation Answer Date Re corded In the past 12 months, has l ack of transportation kept you from medical appointments or from getting medications? No 06/08 In the past 12 months, has l ack of transportation kept you from meetings, work, or from getting things needed for daily living? No 06/26/2024 Housing Stability Answer Date Recorded What is your living situation today? [facility] 06/25/2024 Housing Stability Not on file 06/25/2024 Interpersonal Safety Answer Date Record ed Is there anyone in your life that is hurting or threatening you in anyway? no 07/08/2024 Physical Indicators of Abuse No evidence of phys ical abuse 07/08/2024 Sex and Gender Information Value Date Recorded Sex Assigned at Not on file Legal Sex Male 8:38 AM EDT Gender Identity Male 02/12/2024 1:14 AM EST Sexual Orientation Not on file Last Filed Vital Signs Vital Sign Reading Time Taken Comments Blood Pressure 107/75 09/18/2024 11:09 AM EDT Pulse 82 09/18/2024 11:09 AM EDT Temperature 36.8 C (98.3 F) 07/04/2024 1:23 PM EDT Respiratory Rate 18 07/04/2024 1:23 PM EDT Oxygen Saturation 98% 07/04/2024 1:23 PM EDT Inhaled Oxygen Concentration - - Weight 90.7 kg (200 lb) 07/04/2024 1:23 PM EDT Height 182.9 cm (6') 07/04/2024 1:23 PM EDT Body Mass Index 27.12 07/04/2024 1:23 PM EDT Plan of Treatment Upcoming Encounters Date Type Department Care Team (Late st Contact Info) Description 11/19/2024 1:15 PM EDT Initial consult Spine Center 1 [facility] [place] [address] Jayesh De Santiago MBBS [address] [place] [phone] Danny Schmitt MD [address] [facility] [address] [place] [phone] 03/24/2025 10:45 AM EST Follow Up Spine Center at [address] [facility] [address] [facility] 6th [address] [place], [place] [address] Peng Bravo MD [address] [facility] [address] [place] [phone] Health Maintenance Due Date Last Done Comments HIV screening 01/17/1973 Hepatitis C screening 01/17/1978 Tetanus adult (Td q 10,TDAP once) 1980 Lipid disorder screening 2000 Shingles vaccine (Shingrix) (1 of 2 - Shingrix (RZV) 2 Dose Standard Series) 01/17/2010 Pneumococcal Vaccine (50+ years) (2 of 2 - PCV) 11/22/2017 11/22/2016 Covid-19 vaccine series (2 - season) 2023 10/22/2021 Influenza vaccine 12/09/2024 Diabetes screening 06/27/2027 06/26/2024, 06/25/2024, 06/24/2024 Colon cancer screening, Colonoscopy 10/28/2034 10/28/2024 RSV Immunization (1 - 1-dose 75+ series) 01/17/2035 Pneumococcal Vaccine (2 - 49 years) Discontinued 11/22/2016 Lung Cancer Screening Discontinued 07/04/2024 , 07/04/2024 Meningococcal Vaccine Aged Out No kike héctor eligible based on patient's age to complete this topic Goals Goal Patient Goal Type Associated Problems Recent Progress Patient-Stated? 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 ENGINEER PROBLEM No Jenifer Badillo, ROSEANN Medical Devices Implanted Type Area Pearl Fisherman Device Identifier Shelf Expiration Date Model / Serial / Lot Cage Spn Modulus Xl [id number] 10deg - [id number] Implanted:Qty: 1 on 06/25/2024 by Peng Bravo MD at [address] Implant Lumbar: Spine Lumbar [employer] [id number] / / Cage Spn Xlrg 10d Xlif Modulus [id number] - [id number] Implanted:Qty: 2 on 06/25/2024 by Peng Bravo MD at [address] Implant Spine Lumbar [employer] [id number] / / Cage Spn Modulus Xl [id number] 10deg - [id number] Implanted:Qty: 1 on 06/25/2024 by Peng Bravo MD at [address] Implant Spine Lumbar [employer] [id number] / / Screw Spinal Pedicle Ats Ti 6.9nus46xw Solera - [id number] Implanted:Qty: 4 on 06/25/2024 by Peng Bravo MD at [address] Implant Spine Lumbar [employer] [id number] / / 5.5mm-6mm X 7.5mm X 55mm, Screw, Sv Ats Implanted:Qty: 4 on 06/25/2024 by Peng Bravo MD at [address] Implant Spine Lumbar [employer] - Sofamor Danek [id number] / / Screw Set Voyager - [id number] Implanted:Qty: 8 on 06/25/2024 by Peng Bravo MD at [address] Implant Spine Lumbar [employer] [id number] / / Jeison 5.5 Ti Al Perc Jeison 120mm - [id number] Implanted:Qty: 1 on 06/25/2024 by Peng Bravo MD at [address] Implant Spine Lumbar [employer] [id number] / / Jeison 5.5 Ti Al Perc Jeison 110mm - [id number] Implanted:Qty: 1 on 06/25/2024 by Peng Bravo MD at [address] Implant Spine Lumbar [employer] [id number] / / Graft Infs Lrg 2 - [id number] Implanted:Qty: 1 on 06/25/2024 by Peng Bravo MD at [address] Implant Spine Lumbar [employer] [id number] 02/08/2025 [id number] / / [id number] Putty Acell Evo3c Dbm 5cc - [id number] Implanted:Qty: 1 on 06/25/2024 by Peng Bravo MD at [address] Implant Spine Lumbar [employer] [id number] 05/07/2025 [id number] / [id number] / [id number] Putty Acell Evo3c Dbm 10cc - [id number] Implanted:Qty: 1 on 06/25/2024 by Peng Bravo MD at [address] Implant Spine Lumbar [employer] [id number] 03/07/20255000-100 / [id number] / [id number] Cage Spn Xlrg 10d Xlif Modulus [id number] - Srn Overcharged Implanted:Qty: 1 on 06/25/2024 by Peng Bravo MD at [address] Implant Spine Lumbar [employer] [id number] / RN OVERCHARGED / Cage Spn Xlrg 10d Xlif Modulus [id number] - Srn Overcharged Implanted:Qty: 1 on 06/25/2024 by Peng Bravo MD at [facility] [address] Implant Spine Lumbar [facility] [id number] / RN OVERCHARGED / Titanium Description:Dental implant Clip gallbladder Left Knee screws Wires chest (heart surgery) Screw Description:Left knee Clip Description:Gall bladder Wires Description:Sternum (heart s urgery) Explanted Type Area Pearl Fisherman Device Identifier Shelf Expiration Date Model / Serial / Lot Pin Clemente 100 Mm - [id number] Explanted:Qty: 1 on 06/25/2024 by Peng Bravo MD at [facility] [address] Implant [employer] [id number] 02/26/2027 [id number] / / [id number] Procedures Procedure Name Priority Date/Time Associated Diagnosis Comments XR THORACIC SPINE AP AND LATERAL Routine 09/18/2024 11:18 AM EDT S/P lumbar fusion XR LUMBAR SPINE AP AND LATERAL Routine 08/23/2024 1:07 PM EDT S/P lumbar fusion BASIC METABOLIC PANEL Early AM 06/26/2024 6:20 AM EDT from Last 3 Months or Most Recently Relevant to Health Maintenance Results * XR Thoracic Spine AP and Lateral (09/18/2024 11:18 AM EDT) Anatomical Region Laterality Modality T-spine, Spine, Ortho T-spine Di gital Radiography 09/18/2024 3:38 PM EDT Impressions 09/18/2024 4:29 PM EDT 1. Partially revisualized posterior lumbar fusion hardware. 2. Thoracic spine disc degeneration as described above. No acute osseous finding. 3. Fracture of the uppermost sternotomy wire. [facility] Communications Center: Routine. Report initiated by: Gian Zimmer MD Reported and signed by: John Mercer MD [facility] Narrative 09/18/2024 4:29 PM EDT XR THORACIC SPINE AP AND LATERAL CLINICAL INFORMATION: 64 years Male with s/p lumbar fusion. COMPARISON: XR SCOLIOSIS/SURVEY AP OR PA AND LAT ENT SPINE ([facility]) 2024-03-11 FINDINGS : Partially revisualized posterior lumbar fusion hardware and DLIF at L2-3. Cholecystectomy, median sternotomy postoperative changes, again noted. Fracture of the superiormost sternotomy wire. Probable external metallic densities project over the cardiac silhouette and apex. Mild diffuse osteopenia. Twelve rib-bearing thoracic-type vertebral bodies are visualized. No acute compression fracture or traumatic subluxation. Minimal levoscoliosis of the lower thoracic and upper lumbar spine, incompletely imaged. Alignment of vertebral bodies appears otherwise preserved. Multilevel disc degeneration worse at T11-12 with loss of disc space height and sclerotic endplate changes worse on the left. Disc degeneration is noted in the upper lumbar spine, malleolus. Pedicles are intact. Spinous processes are midline and intact. Paraspinal lines are intact. The visualized lungs encinas are unremarkable. Procedure Note John Mercer MD - 09/18/2024 XR THORACIC SPINE AP AND LATERAL CLINICAL INFORMATION: 64 years Male with s/p lumbar fusion. COMPARISON: XR SCOLIOSIS/SURVEY AP OR PA AND LAT ENT SPINE ([facility]) 2024-03-11 FINDINGS : Partially revisualized posterior lumbar fusion hardware and DLIF atL2-3. Cholecystectomy, median sternotomy postoperative changes, again noted.Fracture of the superiormost sternotomy wire. Probable external metallicdensities project over the cardiac silhouette and apex. Mild diffuse osteopenia. Twelve rib-bearing thoracic-type vertebral bodies are visualized. No acute compression fracture or traumatic subluxation. Minimal levoscoliosis of the lower thoracic and upper lumbar spine,incompletely imaged. Alignment of vertebral bodies appears otherwise preserved. Multilevel disc degeneration worse at T11-12 with loss of disc spaceheight and sclerotic endplate changes worse on the left. Disc degenerationis noted in the upper lumbar spine, malleolus. Pedicles are intact. Spinous processes are midline and intact. Paraspinallines are intact. The visualized lungs encinas are unremarkable. IMPRESSION: 1. Partially revisualized posterior lumbar fusion hardware. 2. Thoracic spine disc degeneration as described above. No acute osseousfinding. 3. Fracture of the uppermost sternotomy wire. [facility] Communications Center: Routine. Report initiated by: Gian Zimmer MD Reported and signed by: John Mercer MD [facility] Peng Bravo MD [facility] Final Result * XR Lumbar Spine AP and Lateral (08/23/2024 1:07 PM EDT) Anatomical Region Laterality Modality L-spine, Spine, Ortho L-spine Di gital Radiography 08/23/2024 4:07 PM EDT Impressions 08/23/2024 4:10 PM EDT Status post lumbar fusion without evidence of hardware complication.. Reported and signed by: Ese Saeed MD [facility] Narrative 08/23/2024 4:10 PM EDT STUDY: XR LUMBAR SPINE AP AND LATERAL INDICATION: Follow-up fusion. COMPARISON: July 08, 2024. FINDINGS: Status post L1-L4 posterior lumbar fusion and intervertebral disc spacer placement. There is no evidence of hardware complication. The vertebral body heights are maintained. Degenerative changes in the lower thoracic and lumbar spine with osteophytes. Cholecystectomy clips are seen in the right upper quadrant. Procedure Note Ese Saeed MD - 08/23/2024 STUDY: XR LUMBAR SPINE AP AND LATERAL INDICATION: Follow-up fusion. COMPARISON: July 08, 2024. FINDINGS: Status post L1-L4 posterior lumbar fusion and intervertebral disc spacerplacement. There is no evidence of hardware complication. The vertebralbody heights are maintained. Degenerative changes in the lower thoracicand lumbar spine with osteophytes. Cholecystectomy clips are seen in the right upper quadrant. IMPRESSION: Status post lumbar fusion without evidence of hardware complication.. Reported and signed by: Ese Saeed MD [facility] Mara ESCALANTE [facility] OR DERABLES Final Result * (ABNORMAL) Basic metabolic panel (06/26/2024 6:20 AM EDT) Sodium 140 136 - 144 mmol/L 06/26/2024 7:40 AM EDT [facility] Potassium 4.1 3.3 - 5.3 mmol/L 06/26/2024 7:40 AM EDT [facility] Chloride 101 98 - 107 mmol/L 06/26/2024 7:40 AM EDT [facility] CO2 19(L) 20 - 30 mmol/L 06/26/2024 7:40 AM EDT [facility] Anion Gap 20(H) 7 - 17 06/26/2024 7:40 AM T [facility] Glucose 187(H) 70 - 100 mg/dL 06/26/2024 7:40 AM EDT [facility] BUN 14 8 - 23 mg/dL 06/26/2024 7:40 AM EDT [facility] Creatinine 0.80 0.40 - 1.30 mg/dL 06/26/2024 7:40 AM [facility] Calcium 9.0 8.8 - 10.2 mg/dL 06/26/2024 7:40 AM [facility] BUN/Creatinine Ratio 17.5 8.0 - 23.0 06/26/2024 7:40 AM [facility] eGFR (Creatinine) >60 >=60 mL/min/1.73 m2 06/26/2024 7:40 AM [facility] Comment: [facility] utilizes CKD-EPI Creatinine 2020 to report eGFR. Values < 60 mL/min/1.73 m2 may indicate CKD if present for more than three months AND creatinine is at steady state. The eGFR provides a rough estimate of kidney function. For further guidance, please refer to the CKD: Adult Health And Safety Advisor Signature pathway. Creatinine Delta 0.1 See Comment 025 7:40 AM [facility] Comment: Delta creatinine is the difference between the current creatinine and the most recent prior creatinine (if available within the previous 12 months). It is intended to detect significant changes in kidney function for patients whose creatinine is <5 mg/dL. A delta is not calculated for patients whose baseline creatinine is >=5 mg/dL or those who do not have a baseline within the last year. The following deltas will flag as critical (triggering a call from the laboratory): a) Deltas >= +1.5 mg/dL for patients with baseline creatinine <= 1.5 mg/dL. b) Deltas >= +3 mg/dL for patients with baseline creatinine between 1.5 and 5 mg/dL. 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 PRO BLEM 04/22/2024 Insurance MGD Member Subscriber Plan / Payer (Ef fective 2023-Present) Name:Pete Gonzalez Relation to Subscriber:Self Name:Pete Gonzalez Payer ID:[id number] (NAIC) Type:Not on file Address: [place] [phone] MGD Member Subscriber Plan / Payer (Ef fective 2023-Present) Name:Pete Gonzalez Relation to Subscriber:Self Name:Pete Gonzalez Payer ID:[id number] (NAIC) Type:Not on file Address: [place] [phone] [place] [address] MGD Advance Directives * Full Code (Latest Code Status on File) Date Activated Date Inactivated Comments 06/25/2024 3:10 PM 06/29/2024 5:13 PM Question Answer Comments With Whom was the Code Status Discussed? Patient Care Teams Small Package And Bundle Sorter Clerk Relationship Specialty Start Date End Date Claus Osullivan MD PCP - General Internal Medicine 03/29/24
--- OUTSIDE RECORDS SUMMARY | 2024-11-07 11:36 | XMS_ITS | Encounter Summary ---
Author Organization [facility] Address [address] [place] [address] Care Team Providers Care Head Soft Sugar Operator Name Role Phone Claus Osullivan MD Primary Care Provider [phone] Encounter Details Date Type Department Care Team (Late st Contact Info) Description 10/29/2024 Telephone Gastroenterology - [address] [place] [phone] Davis French MD [address] [place] [address] Social History Tobacco Use Types Packs/Day Years Used Date Smoking Tobacco: Some Days Cigars Smokeless Tobacco: Never Alcohol Use Standard Drinks/Week Comments Not Currently 0 (1 standard drink = 0.6 oz pur e alcohol) Interpersonal Safety Answer Date Record ed Physical Abuse 10/28/2024 Verbal Abuse 10/28/2024 Sex and Gender Information Value Date Recorded Sex Assigned at Male 07/04/2024 2:29 PM EDT Legal Sex Male 10:15 PM EST Gender Identity Male 07/04/2024 2:29 PM EDT Sexual Orientation Straight 07/04/2024 2: 29 PM EDT documented as of this encounter Progress Notes * Claudine Carter - 11/04/2024 8:11 AM EDT 3rd attempt to schedule an appointment patient left message to call back and letter sent * Claudine Carter - 10/31/2024 8:56 AM EDT 2nd attempt to schedule an appointment patient left message to call back * Claudine Carter - 10/29/2024 2:01 PM EDT 1st attempt to schedule an appointment patient left message to call back Screening-binta Poor prep with binta * Tania Naidu - 10/29/2024 11:03 AM EDT Pt had procedure with Dr. French on 10/28/24, need to reschedule, stool in colon documented in this encounter Plan of Treatment Upcoming Encounters Date Type Department Care Team (Late st Contact Info) Description 12/17/2024 9:10 AM EDT Office Visit [facility] [address] [facility] [address] [place] [address] Alma Goldberg NP [address] [place] [phone] documented as of this encounter Visit Diagnoses Not on filedocumented in this encounter Care Teams Head Soft Sugar Operator Relationship Specialty Start Date End Date Claus Osullivan MD [address] [place] [address] PCP - General Internal Medicine 06/18/24 documented as of this encounter
--- OUTSIDE RECORDS SUMMARY | 2024-11-07 11:36 | XMS_ITS ---
Author Name [facility] Organization Unknown Results Test Name/Text Value Interpretation Date Range Source Troponin I SerPl HS-mCnc 8.0 ng/L Normal 07/04/2024 0 - 20 [facility] Sodium SerPl-sCnc 134.0 mmol/L Below low normal 07/04/2024 1 35 - 145 [facility] Chloride SerPl-sCnc 96.0 mmol/L Below low normal 07/04/2024 98 - 107 [facility] Anion Gap SerPl-sCnc 8.0 Normal 07/04/2024 5 - 14 [facility] eGFRcr SerPlBld CKD-EPI 2020 82.0 mL/min/1.73m2 Normal 07/04/2024 - [facility] Creat SerPl-mCnc 1.02 mg/dL Normal 07/04/2024 0.7 - 1.3 C [facility] Potassium SerPl-sCnc 4.1 mmol/L Normal 07/04/2024 3.5 - 5 .1 [facility] CO2 SerPl-sCnc 30.0 mmol/L Normal 07/04/2024 24 - 32 [facility] BUN SerPl-mCnc 25.0 mg/dL Above high normal 07/04/2024 9 - 2 0 [facility] BUN/Creat SerPl 24.5 Above high normal 07/04/2024 12 - 20 [facility] Glucose SerPl-mCnc 246.0 mg/dL Above high normal 07/04/2024 70 - 199 [facility] Calcium SerPl-mCnc 8.9 mg/dL Normal 07/04/2024 8.4 - 10.2 [facility] PMV Bld Auto 8.7 FL Normal 07/04/2024 7.4 - 11.4 [facility] RBC # Bld Auto 4.15 M/mcL Below low normal 07/04/2024 4.7 - 6 [facility] Eosinophil # Bld Auto 0.75 K/mcL Above high normal 0 - 0.5 [facility] Hct VFr Bld Auto 35.5 % Below low normal 07/04/2024 40 - 54 [facility] Basophils # Bld Auto 0.05 K/mcL Normal 07/04/2024 0 - 0.2 [facility] Monocytes/leuk NFr Bld Auto 9.6 % Normal 07/04/2024 2 - 12 [facility] Monocytes # Bld Auto 0.84 K/mcL Above high normal 07/04/2024 0 - 0.8 [facility] Platelet # Bld Auto 414.0 K/mcL Normal 07/04/2024 150 - 4 50 [facility] MCH RBC Qn Auto 29.4 pcg Normal 07/04/2024 25 - 33 [facility] Hgb Bld-mCnc 12.2 g/dL Below low normal 07/04/2024 13.5 - 18 [facility] MCHC RBC Auto-mCnc 34.4 g/dL Normal 07/04/2024 32 - 36 [facility] Lymphocytes # Bld Auto 1.69 K/mcL Normal 07/04/2024 1 - 3 .2 [facility] Neutrophils/leuk NFr Bld Auto 60.8 % Normal 07/04/2024 44 - 74 [facility] Basophils/leuk NFr Bld Auto 0.6 % Normal 07/04/2024 0 - 2 [facility] WBC # Bld Auto 8.8 K/mcL Normal 07/04/2024 4 - 10.5 [facility] Eosinophil/leuk NFr Bld Auto 8.5 % Above high normal 07/04/2024 0 - 6 [facility] MCV RBC Auto 85.5 FL Normal 07/04/2024 78 - 100 [facility] MH Neutrophils # Bld Auto 5.34 K/mcL Normal 07/04/2024 1.8 - 7.8 [facility] RDW RBC Auto-Rto 13.3 % Normal 07/04/2024 12.1 - 17.7 [facility] Lymphocytes/leuk NFr Bld Auto 19.2 % Below low normal 07/04/2024 20 - 48 [facility] BUN/Creat SerPl 17.5 Normal 06/26/2024 8 - 23 [facility] Sodium SerPl-sCnc 140.0 mmol/L Normal 06/26/2024 136 - 14 4 [facility] Glucose SerPl-mCnc 187.0 mg/dL Above high normal 06/26/2024 70 - 100 [facility] BUN SerPl-mCnc 14.0 mg/dL Normal 06/26/2024 8 - 23 [facility] Potassium SerPl-sCnc 4.1 mmol/L Normal 06/26/2024 3.3 - 5 .3 [facility] Creat SerPl-mCnc 0.8 mg/dL Normal 06/26/2024 0.4 - 1.3 [facility] Chloride SerPl-sCnc 101.0 mmol/L Normal 06/26/2024 98 - 1 07 [facility] HCO3 SerPl-sCnc 19.0 mmol/L Below low normal 06/26/2024 20 - 30 [facility] GFR/BSA.pred SerPlBld LHU-HPT-ReYIlv >60.0 mL/min/1.73m2 Normal 06/26/2024 - [facility] Calcium SerPl-mCnc 9.0 mg/dL Normal 06/26/2024 8.8 - 10.2 [facility] Anion Gap3 SerPl-sCnc 20.0 Above high normal 06/26/2024 7 - 17 [facility] BKR CREATININE DELTA 0.1 Normal 06/26/2024 - [facility] Lymphocytes/leuk NFr Bld Auto 5.3 % Below low normal 06/26/2024 17 - 50 [facility] Hgb Bld-mCnc 12.5 g/dL Below low normal 06/26/2024 13.2 - 17 .1 [facility] Lymphocytes # Bld Auto 0.65 x 1000/uL Normal 06/26/2024 0.6 - 3.7 [facility] Basophils # Bld Auto 0.0 x 1000/uL Normal 06/26/2024 0 - 1 [facility] MCV RBC Auto 85.5 fL Normal 06/26/2024 80 - [address] Imm Granulocytes # Bld Auto 0.03 x 1000/uL Normal 06/26/2024 0 - 0.3 [facility] Eosinophil/leuk NFr Bld Auto 0.0 % Normal 06/26/2024 0 - 5 [facility] Monocytes/leuk NFr Bld Auto 5.8 % Normal 06/26/2024 4 - 12 [facility] Platelet # Bld Auto 231.0 x1000/uL Normal 06/26/2024 150 - 420 [facility] Monocytes # Bld Auto 0.71 x 1000/uL Normal 06/26/2024 0 - 1 [facility] Hct VFr Bld Auto 36.5 % Below low normal 06/26/2024 38.5 - 50 [facility] PMV Bld Auto 9.3 fL Normal 06/26/2024 8 - [address] Neutrophils # Bld Auto 10.81 x 1000/uL Above high normal 06/26/2024 2 - 7.6 [facility] Neutrophils/leuk NFr Bld Auto 88.7 % Above high normal 06/26/2024 39 - 72 [facility] Imm Granulocytes/leuk NFr Bld Auto 0.2 % Normal 06/26/2024 0 - 1 [facility] MCH RBC Qn Auto 29.3 pg Normal 06/26/2024 27 - 33 [facility] nRBC/100 WBC Bld Auto-Rto 0.0 % Normal 06/26/2024 0 - 1 [facility] Basophils/leuk NFr Bld Auto 0.0 % Normal 06/26/2024 0 - 1.4 [facility] nRBC # Bld Auto 0.0 x 1000/uL Normal 06/26/2024 0 - 1 [facility] MCHC RBC Auto-mCnc 34.2 g/dL Normal 06/26/2024 31 - 36 [facility] WBC # Bld Auto 12.2 x1000/uL Above high normal 06/26/2024 4 - 11 [facility] Eosinophil # Bld Auto 0.0 x 1000/uL Normal 06/26/2024 0 - 1 [facility] RBC # Bld Auto 4.27 M/uL Normal 06/26/2024 4 - 6 [facility] RDW RBC Auto-Rto 12.2 % Normal 06/26/2024 11 - 15 [facility] Sodium SerPl-sCnc 137.0 mmol/L Normal 06/25/2024 136 - 14 4 [facility] Anion Gap3 SerPl-sCnc 15.0 Normal 06/25/2024 7 - 17 [facility] BUN SerPl-mCnc 11.0 mg/dL Normal 06/25/2024 8 - 23 [facility] Creat SerPl-mCnc 0.7 mg/dL Normal 06/25/2024 0.4 - 1.3 [facility] Glucose SerPl-mCnc 187.0 mg/dL Above high normal 06/25/2024 70 - 100 [facility] Chloride SerPl-sCnc 101.0 mmol/L Normal 06/25/2024 98 - 1 07 [facility] Potassium SerPl-sCnc 3.6 mmol/L Normal 06/25/2024 3.3 - 5 .3 [facility] BUN/Creat SerPl 15.7 Normal 06/25/2024 8 - 23 [facility] Calcium SerPl-mCnc 8.4 mg/dL Below low normal 06/25/2024 8.8 - 10.2 [facility] GFR/BSA.pred SerPlBld RYW-BPN-IrHLlt >60.0 mL/min/1.73m2 Normal 06/25/2024 - [facility] BKR CREATININE DELTA -0.25 Normal 06/25/2024 - [facility] HCO3 SerPl-sCnc 21.0 mmol/L Normal 06/25/2024 20 - 30 [facility] RDW RBC Auto-Rto 11.9 % Normal 06/25/2024 11 - 15 [facility] Basophils # Bld Auto 0.02 x 1000/uL Normal 06/25/2024 0 - 1 [facility] RBC # Bld Auto 4.28 M/uL Normal 06/25/2024 4 - 6 [facility] MCV RBC Auto 84.6 fL Normal 06/25/2024 80 - [address] Basophils/leuk NFr Bld Auto 0.1 % Normal 06/25/2024 0 - 1.4 [facility] nRBC/100 WBC Bld Auto-Rto 0.0 % Normal 06/25/2024 0 - 1 [facility] MCH RBC Qn Auto 29.0 pg Normal 06/25/2024 27 - 33 [facility] PMV Bld Auto 9.1 fL Normal 06/25/2024 8 - [address] Platelet # Bld Auto 213.0 x1000/uL Normal 06/25/2024 150 - 420 [facility] Eosinophil # Bld Auto 0.02 x 1000/uL Normal 06/25/2024 0 - 1 [facility] Lymphocytes/leuk NFr Bld Auto 4.7 % Below low normal 06/25/2024 17 - 50 [facility] Neutrophils/leuk NFr Bld Auto 92.2 % Above high normal 06/25/2024 39 - 72 [facility] Hct VFr Bld Auto 36.2 % Below low normal 06/25/2024 38.5 - 50 [facility] Imm Granulocytes/leuk NFr Bld Auto 0.9 % Normal 06/25/2024 0 - 1 [facility] nRBC # Bld Auto 0.0 x 1000/uL Normal 06/25/2024 0 - 1 [facility] Imm Granulocytes # Bld Auto 0.12 x 1000/uL Normal 06/25/2024 0 - 0.3 [facility] Hgb Bld-mCnc 12.4 g/dL Below low normal 06/25/2024 13.2 - 17 .1 [facility] WBC # Bld Auto 13.7 x1000/uL Above high normal 06/25/2024 4 - 11 [facility] Eosinophil/leuk NFr Bld Auto 0.1 % Normal 06/25/2024 0 - 5 [facility] MCHC RBC Auto-mCnc 34.3 g/dL Normal 06/25/2024 31 - 36 [facility] Lymphocytes # Bld Auto 0.64 x 1000/uL Normal 06/25/2024 0.6 - 3.7 [facility] Monocytes/leuk NFr Bld Auto 2.0 % Below low normal 06/25/2024 4 - 12 [facility] Neutrophils # Bld Auto 12.62 x 1000/uL Above high normal 06/25/2024 2 - 7.6 [facility] Monocytes # Bld Auto 0.28 x 1000/uL Normal 06/25/2024 0 - 1 [facility] BKR ABORH RECHECK INTERPRETATION A POS Normal 06/25/2024 [facility] BKR ABO GROUPING A Normal 06/25/2024 [facility] BKR RH TYPE POS Normal 06/25/2024 [facility] T BKR ANTIBODY SCREEN NEG Normal 06/25/2024 [facility] BKR SPECIMEN EXPIRATION DATE AND TIME 06/28/2024 23:59 Normal 06/25/2024 [facility] History of Medication Use Medication Directions Dispensed Refills Start Date End Date Status iopamidoL (ISOVUE-370) 370 mg iodine /mL (76 %) injection 100 mL 100 mL, intravenous, Once in imaging, Starting on Karla 07/04/24 at 1647, For 1 dose 025 2024 completed sodium chloride 0.9 % flush 10 mL 10 mL, intravenous, Once, On Karla 07/04/24 at 1648, For 1 dose 025 2024 completed sodium chloride 0.9 % intravenous solution 50 mL 50 mL, intravenous, Once in imaging, Starting on Karla 07/04/24 at 1647, For 1 dose 025 2024 completed cyclobenzaprine (FLEXERIL) 10 mg tablet Take 0.5 tablets (5 mg total) by mouth 3 (three) times daily as needed for muscle spasms for up to 10 days. active polyethylene glycol (MIRALAX) 17 gram packet Take 1 packet (17 g total) by mouth daily. Mix in 8 ounces of water, juice, soda, coffee or tea prior to taking. active acetaminophen (TYLENOL) 325 mg tablet Take 3 tablets (975 mg total) by mouth every 6 (six) hours for 10 days. active hydrALAZINE (APRESOLINE) 50 mg tablet Take 1 tablet (50 mg total) by mouth 2 (two) times daily. active hydroCHLOROthiazide (HYDRODIURIL) 25 mg tablet Take 1 tablet (25 mg total) by mouth daily. active irbesartan (AVAPRO) 300 mg tablet Take 1 tablet (300 mg total) by mouth daily. Defer to prescriber active naloxone (NARCAN) 4 mg/actuation nasal spray Use 1 spray in 1 nostril for suspected opioid overdose. May repeat in 2 minutes in other nostril with new device if minimal or no response. active senna (SENOKOT) 8.6 mg tablet Take 1 tablet (8.6 mg total) by mouth 2 (two) times daily. active valsartan (DIOVAN) 320 mg tablet Take 1 tablet (320 mg total) by mouth daily. Defer to prescriber active walker Misc Use as directed. active bisacodyL (DULCOLAX) 5 mg EC tablet Take 2 tablets by mouth right before beginning bowel prep. See instructions provided by the office active polyethylene glycol (Golytely) 236-22.74-6.74 -5.86 gram solution Take 4L by mouth once for one dose. May substitue any PEG. Starting at 6PM the night before your procedure drink 1 8oz glasses at your own pace until you complete half of the gallon. Finish 2nd half of the gallon 5 hours before your procedure. active naloxone (NARCAN) 4 mg/0.1 mL nasal spray Administer 1 each (4 mg total) into affected nostril(s) if needed for opioid reversal. Give 4 mg (1 spray) into one nostril. May repeat every 2-3 minutes if needed, alternating nostrils, until medical assistance becomes available. active armodafiniL (NUVIGIL) 50 mg tablet Take 1 tablet (50 mg total) by mouth every morning. active JARDIANCE 25 mg tablet Take 1 tablet (25 mg total) by mouth daily. active morphine (MS CONTIN) 30 mg 12 hr extended release tablet Take 1 tablet (30 mg total) by mouth every 12 (twelve) hours. active FLUoxetine (PROZAC) 20 mg capsule Take 1 capsule (20 mg total) by mouth 2 (two) times daily. active gabapentin (NEURONTIN) 600 mg tablet Take 1 tablet (600 mg total) by mouth 3 times a day. active mirtazapine (REMERON) 7.5 mg tablet Take 1 tablet (7.5 mg total) by mouth nightly. active DULoxetine (CYMBALTA) 20 mg capsule Take by mouth. active hydrALAZINE (APRESOLINE) 50 mg tablet Take 50 mg by mouth in the morning and 50 mg in the evening. Take with meals. 2021 active gabapentin (NEURONTIN) 300 mg capsule Take 600 mg by mouth. active carvediloL (COREG) 25 mg tablet Take 1 Tablet by mouth 2 times daily (with meals). active Jardiance 25 mg tablet TAKE 1 TABLET BY MOUTH EVERY DAY IN THE MORNING active amLODIPine (NORVASC) 10 mg tablet amlodipine 10 mg tablet TAKE 1 TABLET BY MOUTH EVERY DAY active hydroCHLOROthiazide (HYDRODIURIL) tablet hydrochlorothiazide 25 mg tablet TAKE 1 TABLET BY MOUTH EVERY DAY active amLODIPine (NORVASC) 10 mg tablet Take 1 tablet (10 mg total) by mouth daily. activ e amLODIPine (NORVASC) 10 mg tablet Take 10 mg by mouth daily. active atorvastatin (LIPITOR) 40 mg tablet Take 1 tablet (40 mg total) by mouth daily. activ e atorvastatin (LIPITOR) 40 mg tablet Take 40 mg by mouth daily. active carvediloL (COREG) 25 mg Immediate Release tablet Take 1 tablet (25 mg total) by mouth 2 (two) times daily with breakfast and dinner. active clonazePAM (KlonoPIN) 1 mg tablet Take 1 mg by mouth 2 times daily as needed. activ e clonazePAM (KLONOPIN) 1 mg tablet Take 1 tablet (1 mg total) by mouth 2 (two) times daily. active empagliflozin (Jardiance) 25 mg tablet Take by mouth daily. acti ve FLUoxetine (PROzac) 20 mg capsule Take 2 Capsules by mouth daily. active gabapentin (NEURONTIN) 600 mg tablet Take 1 Tablet by mouth 3 times daily. active insulin glargine (Lantus Solostar U-100 Insulin) 100 unit/mL (3 mL) insulin pen Lantus Solostar U-100 Insulin 100 unit/mL (3 mL) subcutaneous pen INJECT 120 UNITS UNDER THE SKIN ONCE DAILY DIRECTED active insulin lispro 100 unit/mL insulin pen Humalog KwikPen (U-100) Insulin 100 unit/mL subcutaneous INJECT 50 UNITS UNDER THE SKIN EVERY DAY AFTER DINNER active lisinopriL (PRINIVIL,ZESTRIL) 2.5 mg tablet Take 1 tablet (2.5 mg total) by mouth daily. activ e lisinopriL (PRINIVIL,ZESTRIL) 2.5 mg tablet Take 1 Tablet by mouth daily. active metFORMIN (GLUCOPHAGE) 1,000 mg tablet Take 1,000 mg by mouth 2 times daily (with meals). active metFORMIN (GLUCOPHAGE) 1000 mg tablet Take 1 tablet (1,000 mg total) by mouth 2 (two) times daily with breakfast and dinner. active mirtazapine (REMERON) 7.5 mg tablet Take 2 Tablets by mouth at bedtime. active MORPHINE SULFATE ER PO Take 30 mg by jaswinder th 2 (two) times a day. active MULTIVITAMIN ORAL Take 1 tablet by jaswinder th daily. active oxyCODONE (ROXICODONE) 15 mg immediate release tablet Take 1 Tablet by mouth 4 times daily. active Allergies Allergen Reaction Severity Comment Documented Date Source Status GRASS [place]LLEN 07/04/2024 [facility] active BREXPIPRAZOLE OTHER (SEE COMMENTS) hyperglycemia 04/22/2024 [facility] active SEMAGLUTIDE NAUSEA AND VOMITING Ozempic (0.25 Or 0.5 Mg-dose 01/26/2024 [facility] active NETO INHIBITORS [facility] ARIPIPRAZOLE OTHER (SEE COMMENTS) Abilify [facility] INSULIN GLARGINE OTHER (SEE COMMENTS) Weight gain [facility] Problems Problem Status Onset Date Problem Type Date of Resolution Source Coronary artery disease involving [place] coronary artery of [place] heart without angina pectoris active 2020-08-08 0 ProblemAct [facility] Hypertension active 2020-08-08 0 ProblemAct [facility] Hyperlipidemia LDL goal <55 active 7 ProblemAct [facility] Pain active EncounterDiagnosisAct [facility] HARDEN (dyspnea on exertion) active EncounterDiagnosisAct [facility] Status post coronary artery bypass graft active 7 ProblemAct [facility] Type 2 diabetes mellitus, without long-term current use of insulin active 7 ProblemAct [facility] Lumbar foraminal stenosis active 2024-06-08 8 ProblemAct [facility] Tachycardia active 2024-06-09 7 ProblemAct [facility] Shortness of breath active 2024-06-09 7 ProblemAct [facility] Lumbar radiculitis active EncounterDiagnosisAct [facility] Chronic low back pain active 5 ProblemAct [facility] Hypercholesterolemia active 5 ProblemAct [facility] Lumbosacral radiculitis active 5 ProblemAct [facility] Diabetes mellitus active 5 ProblemAct [facility] Hypertension active 5 ProblemAct [facility] Lumbar post-laminectomy syndrome active 5 ProblemAct [facility] Cannabis abuse active 5 ProblemAct [facility] Enthesopathy of hip region active 5 ProblemAct [facility] Spinal stenosis of lumbar region active 5 ProblemAct [facility] Lumbar spondylosis active EncounterDiagnosisAct [facility] Obesity active 5 ProblemAct [facility] Lumbosacral spondylosis without myelopathy active 5 ProblemAct [facility] Herniated lumbar intervertebral disc active 5 ProblemAct [facility] Osteoarthritis active 5 ProblemAct [facility] Arteriosclerosis of coronary artery active 5 ProblemAct [facility] Headache active 5 ProblemAct [facility] Narcotic drug use active 5 ProblemAct [facility] Immunizations Vaccine Date Source Lot Number Status Pfizer SARS-CoV-2 COVID-19, mRNA, LNP-S, preservative free 10/22/2021 [facility] [id number] completed Encounters Encounter Type Encounter Reason Primary Diagnosis Location Date Emergency SOB, SHOULDER PAIN Other forms o f dyspnea [facility] 07/04/2024 Ambulatory Shortness of breath Shortness of breath [facility] 07/04/2024 Inpatient Other acute postoperative pain Other acute postoperative pain [facility] 06/25/2024 Ambulatory Pain, unspecified Pain, unspecified [facility] 07/24/2023 Ambulatory Spinal stenosis, lumbar region without neurogenic claudication [facility] 10/26/2021 Ambulatory Radiculopathy, l umbar region [facility] 10/12/2021 Ambulatory [facility] 10/12/2021 Ambulatory [facility] 10/12/2021 Ambulatory Radiculopathy, l umbar region [facility] 10/12/2021 Care Team Organization Name Specialty Phone Email Start Date End Da te [facility] 07/09/2024 [facility] 07/04/2024 [facility] 07/04 [facility] 06/27/202407/24 [facility] 06/21/2024 [facility] 0 07/24/2023 10/22/2024 [facility] Primary [facility] 07/23 [facility] PCP,No Primary Care 10/26/2021 [facility] Primary [facility] 10/26/2021 [facility] NO PCP Primary Care 10/12/2021
--- OUTSIDE RECORDS SUMMARY | 2024-11-07 11:36 | XMS_ITS | Clinical Summary ---
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 Role Phone Claus Osullivan Primary Care Provider Unavailabl e Allergies No known active allergies Medications oxyCODONE [...] mellitus 10/12/2021 Enthesopathy of hip region 10/12/2021 Herniated lumbar intervertebral disc 10/12/2021 Hypercholesterolemia 10/12/2021 Hypertension 10/12/2021 Lumbar post-laminectomy syndrome 10/12/2021 Lumbosacral radiculitis 10/12/2021 Lumbosacral spondylosis without myelopathy 10/12 Narcotic drug use 10/12/2021 Obesity 10/12/2021 Osteoarthritis 10/12/2021 Spinal stenosis of lumbar region 10/12/2021 Resolved Problems Problem Noted Date Diagnosed Date Resolved Date Headache 10/12/2021 07/30/2024 Social History Tobacco Use Types Packs/Day Years [...] DTaP,Tdap,and Td Vaccines (1 - Tdap) 01/17/1978 Pneumococcal Vaccine, 50+ Years (2 of 2 - PCV) 11/22/2017 11/22/2016 Zoster Vaccines (2 of 2) 05/15/2021 03/20/2021 COVID-19 Vaccine ( season) 2023 10/22/2021, 03/20/2021, 08/11/2020, Additional history exists Influenza Vaccine (#1) 2024 HPV Vaccines Aged Out No longer eligi ble based on patient's age to complete this topic Hepatitis A Vaccines Aged Out No long er eligible based on patient's age to complete this topic MMR Vaccines Aged Out No longer eligi ble based on patient's age to complete this topic Meningococcal Vaccine Aged Out No kike héctor eligible based on patient's age to complete this topic Insurance MEDICARE Care 

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
== END 2024-11-07 11:59 | disposition home or self-care (01) ==
LOC: HO.HOP 10:46
PROVIDERS: PCP Internal Medicine; Visit Provider Psychiatry & Neurology Psychiatry
DX: F33.9 Major depressive disorder, recurrent, unspecified (principal); F43.10 Post-traumatic stress disorder, unspecified
CPT/HCPCS: 90833; 99213

== ENCOUNTER 2025-02-05 10:44 | Outpatient (AMB) | payer OTHER, SELFPAY ==
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
--- OUTSIDE RECORDS SUMMARY | 2025-02-05 13:26 | XMS_ITS | Clinical Summary ---
Author Organization 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 Name Role Phone Claus Osullivan MD Primary Care Provider [phone] Allergies Active Allergy Reactions Criticality Noted Date [...] 07/04/2024 Tachycardia 07/04/2024 Lumbar foraminal stenosis 06/25/2024 Social History Tobacco Use Types Packs/Day Years Used Date Smoking Tobacco: Former Cigarettes Tobacco Cessation:Counseling Given: Not Answered Comments:Cigar once per month Alcohol Use Standard Drinks/Week Comments Never 0 (1 standard drink = 0.6 oz pur e alcohol) [facility] [employer] Answer Date Recorded In the past 12 months has th e [employer], gas, oil, or water company threatened to [...] your living situation today? I have a [facility] [facility] to live 06/25/2024 Housing Stability Not [...] Care Team (Late st Contact Info) Description 03/24/2025 10:45 AM EST Follow Up [facility] at [address] [place] [address] Peng Bravo MD [address] [place] [id number] Health Maintenance Due Date Last Done Comments HIV screening 01/17/1973 Hepatitis C screening 01/17/1978 Tetanus adult (Td q 10,TDAP once) 1980 Lipid disorder screening 2000 Shingles vaccine (Shingrix) (1 of 2 - Shingrix (RZV) 2 Dose Standard Series) 01/17/2010 Pneumococcal Vaccine (50+ years) (2 of 2 - PCV) 11/22/2017 11/22/2016 Influenza vaccine 11/08/2024 Covid-19 vaccine series (2 - season) 2024 10/22/2021 Diabetes screening 06/27/2027 06/26/2024, 06/25/2024, 06/24/2024 Colon cancer screening, Colonoscopy 10/28/2034 10/28/2024 RSV Immunization (1 - 1-dose 75+ series) 01/17/2035 Pneumococcal Vaccine (2 - 49 years) Discontinued 11/22/2016 Lung Cancer Screening Discontinued 07/04/2024 , 07/04/2024 Meningococcal B Vaccine Aged Out No l onger eligible based on patient's age to complete this topic Meningococcal Vaccine Aged Out No kike héctor eligible based on patient's age to complete this topic Goals Goal Patient Goal Type Associated Problems Recent Progress Patient-Stated? 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 Goal Care Plan AMB CC POSTERIOR LUMBAR SPINE UTILITY PLANT OPERATIVE PROBLEM No Jenifer Badillo, ROSEANN Medical Devices Implanted Type Area Piano Case Maker Device Identifier Shelf Expiration Date Model / Serial / Lot Cage Spn Modulus Xl [id number] 10deg - [id number] Implanted:Qty: 1 on 06/25/2024 by Peng Bravo MD at [address] Implant Lumbar: Spine Lumbar [employer] [id number] / / Cage Spn Xlrg 10d Xlif Modulus [id number] - [id number] Implanted:Qty: 2 on 06/25/2024 by Peng Bravo MD at [address] Implant Spine Lumbar [employer] [id number] / / Cage Spn Modulus Xl [id number] 10deg - [id number] Implanted:Qty: 1 on 06/25/2024 by Peng Bravo MD at [address] Implant Spine Lumbar [employer] [id number] / / Screw Spinal Pedicle Ats Ti 6.2cpu20mc Solera - [id number] Implanted:Qty: 4 on 06/25/2024 by Peng Bravo MD at [address] Implant Spine Lumbar [employer] [id number] / / 5.5mm-6mm X 7.5mm X 55mm, Screw, Sv Ats Implanted:Qty: 4 on 06/25/2024 by Peng Bravo MD at [address] Implant Spine Lumbar [employer] - Sofamor [place] [id number] / / Screw Set Voyager - [id number] Implanted:Qty: 8 on 06/25/2024 by Peng Bravo MD at [address] Implant Spine Lumbar [employer] [id number] / / Jeison 5.5 Ti Al Perc Jeison 120mm - [id number] Implanted:Qty: 1 on 06/25/2024 by Peng Bravo MD at [address] Implant Spine Lumbar [employer] [id number] / / Jeison 5.5 Ti Al Perc Jeison 110mm - [id number] Implanted:Qty: 1 on 06/25/2024 by Peng Bravo MD at [address] Implant Spine Lumbar [employer] [id number] / / Graft Infs Lrg 2 - [id number] Implanted:Qty: 1 on 06/25/2024 by Peng Bravo MD at [address] Implant Spine Lumbar [employer] [id number] 02/08/2025 [id number] / / [id number] Putty Acell Evo3c Dbm 5cc - [id number] Implanted:Qty: 1 on 06/25/2024 by Peng Bravo MD at [address] Implant Spine Lumbar [employer] [id number] 05/07/2025 [id number] / [id number] / [id number] Putty Acell Evo3c Dbm 10cc - [id number] Implanted:Qty: 1 on 06/25/2024 by Peng Bravo MD at [address] Implant Spine Lumbar [facility] [id number] 03/07/20255000-100 / [id number] / [id number] Cage Spn Xlrg 10d Xlif Modulus [id number] - Srn Overcharged Implanted:Qty: 1 on 06/25/2024 by Peng Bravo MD at [address] Implant Spine Lumbar [employer] [id number] / RN OVERCHARGED / Cage Spn Xlrg 10d Xlif Modulus [id number] - Srn Overcharged Implanted:Qty: 1 on 06/25/2024 by Peng Bravo MD at [place] [id number] [facility] Implant Spine Lumbar [employer] [id number] / RN OVERCHARGED / Titanium Description:Dental implant Clip gallbladder Left Knee screws Wires chest (heart surgery) Screw Description:Left knee Clip Description:Gall bladder Wires Description:Sternum (heart s urgery) Explanted Type Area Piano Case Maker Device Identifier Shelf Expiration Date Model / Serial / Lot [place] 100 Mm - [id number] Explanted:Qty: 1 on 06/25/2024 by Peng Bravo MD at [place] [id number] [facility] Implant [employer] [id number] 02/26/2027 [id number] / / [id number] Procedures Procedure Name Priority Date/Time Associated Diagnosis Comments BASIC METABOLIC PANEL Early AM 06/26/2024 6:20 AM EDT from Last 3 Months or Most Recently Relevant to Health Maintenance Results * (ABNORMAL) Basic metabolic panel (06/26/2024 6:20 AM EDT) Sodium 140 136 - 144 mmol/L 06/26/2024 7:40 AM EDT [facility] Potassium 4.1 3.3 - 5.3 mmol/L 06/26/2024 7:40 AM EDT [facility] Chloride 101 98 - 107 mmol/L 06/26/2024 7:40 AM EDT [facility] CO2 19(L) 20 - 30 mmol/L 06/26/2024 7:40 AM EDT [facility] Anion Gap 20(H) 7 - 17 06/26/2024 7:40 AM EDT [facility] Glucose 187(H) 70 - 100 mg/dL 06/26/2024 7:40 AM EDT [facility] BUN 14 8 - 23 mg/dL 06/26/2024 7:40 AM EDT [facility] Creatinine 0.80 0.40 - 1.30 mg/dL 06/26/2024 7:40 AM EDT [facility] Calcium 9.0 8.8 - 10.2 mg/dL 06/26/2024 7:40 AM EDT [facility] BUN/Creatinine Ratio 17.5 8.0 - 23.0 06/26/2024 7:40 AM EDT [facility] eGFR (Creatinine) >60 >=60 mL/min/1.73 m2 06/26/2024 7:40 AM EDT [facility] Comment: [facility] utilizes CKD-EPI Creatinine 2020 to report eGFR. Values < 60 mL/min/1.73 m2 may indicate CKD if present for more than three months AND creatinine is at steady state. The eGFR provides a rough estimate of kidney function. For further guidance, please refer to the CKD: Adult Preschool Program Director Signature pathway. Creatinine Delta 0.1 See Comment 7:40 AM EDT [facility] Comment: Delta creatinine is [...] 6:20 AM EDT 06/26/2024 6:23 AM EDT us Bertrand Adam MD LAB BLOOD ORDERABL ES Final Result [facility] [address] [place] [id number], [facility] [phone] from Last 3 Months or Most Recently Relevant to Health Maintenance Additional Health Concerns Active Problems Noted Date Diagnosed Date AMB CC POSTERIOR LUMBAR SPINE UTILITY PLANT OPERATIVE PRO BLEM 04/22/2024 Insurance MGD MGD [facility] [address] [place] [address] Advance Directives * Full Code (Latest Code Status on File) Date Activated Date Inactivated Comments 06/25/2024 3:10 PM 06/29/2024 5:13 PM Question Answer Comments With Whom was the Code Status Discussed? Patient Care Teams Coal Mill Operator Relationship Specialty Start Date End Date Claus Osullivan MD PCP - General Internal Medicine 03/29/24
--- OUTSIDE RECORDS SUMMARY | 2025-02-05 13:26 | XMS_ITS | Clinical Summary ---
Author Organization [facility] Address [address] [place] [address] Care Team Providers Care Director Security Risk Management Name Role Phone Claus Osullivan MD Primary [...] of 2) 01/17/2010 COVID-19 Vaccine (2 - 2024-2 6 season) 2024 10/22/2021 Influenza Vaccine (#1) 2024 Fall Risk Assessment 01/17/2025 Pneumococcal Vaccine (2 of 2 - PCV) [...] age to complete this topic Care Teams Director Security Risk Management Relationship Specialty Start Date End Date Claus Osullivan MD PCP - General Internal Medicine 08/10/20
--- OUTSIDE RECORDS SUMMARY | 2025-02-05 13:26 | XMS_ITS | Data Portability ---
Author Organization [place] [facility] Address [address] [facility] [address] [place] [address] Care Team Providers Care Die Equipment Operator Name Role Phone SHIV GUEVARA Primary Care [...] reviewed Mr. Gonzalez's prescription summary on the [facility] website and he has received prescriptions from his PCP , Dr. Guevara only and at one pharmacy the [place], [place]. He can follow up as needed. [email or web address] Not available 12/18/2018 16:18:47 09/04/2019 09/04/2019 Pete [...] made for the same. He needs a local combination truck driver with him on the day of [...] made for the same. He needs a local combination truck driver with him on the day of [...] By Organization Details Last Modified Time 11/23/2018 [id number] He was advised against bed rest lasting longer than 4 days [email or web address] Not available 12/18/2018 16:08:18 09/04/2019 [id number] He is a diabetic. Blood sugar levels may temporarily increase after steroid injections. He was advised to check his blood glucose levels three times a day post procedure. If his levels are above 250, he was advised to contact his PCP. [email or web address] Not available 09/04/2019 09:23:02 He was advised [...] care. [email or web address] Not available 09/04/2019 09:22:50 10/02/2019 [id number] He was advised against bed rest lasting longer than 4 days [email or web address] Not available 10/02/2019 10:02:03 10/24/2019 [id number] He was advised against bed rest lasting longer than 4 days. Telehealth visit: The patient was located at home for this telephone electronic visit and gave consent for this visit to be conducted via telehealth. 15 minutes was spent on this call and greater than 50% of the visit was spent on counseling and coordination of care. [email or web address] Not available 10/24/2019 11:05:56 07/20/2020 [id number] He is a diabetic. Blood sugar levels [...] Recorded Time Spinal stenosis of lumbar region [id number] Sheila casiano MD [address] , [address], [place], [address], [place] [facility] 6 13:52:32 Displacement of lumbar intervertebral disc without myelopathy 53646479 Sheila casiano MD [address] , [address], [place], [address], [place] [facility] 6 13:52:32 Enthesopathy of hip region 31758837 Sheila casiano MD [address] , [address], [place], [address], [place] [facility] 6 13:58:18 Lumbar post-laminecto my syndrome 215151763 Active Hadley casiano MD [address] [facility] , [address], [place], [address], [place] [facility] 6 13:52:32 Lumbosacral radiculitis 86881517 Active Hadley casiano MD [address] [facility] , [address], [place], [address], [place] [facility] 6 13:52:32 Lumbosacral spondylosis without myelopathy 55616605 Active Hadley casiano MD [address] , [address], [place], [address], [place] [facility] 6 13:52:32 Problem Notes None recorded. Procedures Surgical History Date Name Laterality Status Provider Name and Address Organization Details Recorded Time 10/02/19 20 Lumbar Epidural steroid injection under fluoroscopic guidance completed Hadley Meng MD [address] [facility] , [address], [place], [address], [place] [facility] 10/02/2019 10:03:06 05/02/19 19 Lumbar Epidural steroid injection under fluoroscopic guidance completed Hadley Meng MD [address] [facility] , [address], [place], [address], [place] [facility] 05/03/2018 14:05:54 12/30/19 16 Lumbar Transforaminal epidural steroid injection under fluroscopic guidance completed Hadley Meng MD [address] [facility] , [address], [place], [address], [place] [facility] 12/30/2015 13:42:56 11/17/19 16 Greater Trochanteric Bursa Steroid Injection completed Hadley Meng MD [address] [facility] , [address], [place], [address], [place] [facility] 11/17/2015 13:58:18 02/09/20 10 Other completed Stacia Arriaga [place] [facility] 11/04/2015 23:00:26 Cholecystectomy completed Stacia Arriaga [place] [facility] 10/29/2015 09:12:56 Knee Surgery completed Stacia Coucher [facility] 11/05/2015 10:42:56 Other completed Stacia Carrillozier [facility] 04/06/2016 14:08:48 CABG completed Stacia Coucher [facility] 04/12/2018 13:34:24 Imaging [...] N ot Available FreeStyle Tonio 14 Day [place] USE DIRECTED active Not Available Not Available No t Available FreeStyle Tonio 14 Day Sensor kit CHANGE OUT EVERY 2 WEEKS active Not Available Not Available No t Available Flucelvax Quad (PF) 60 mcg (15 mcg x 4)/0.5 mL IM syringe inject 0.5 millilite rs intramusc ularly 09/03 completed Not Available Not Available Not Available Vitals Date Recorded Body height Heart rate Oxygen saturation Oxygen saturation in Arterial blood by Pulse oximetry Pain severity - 0-10 verbal numeric rating [Score] - Reported Body mass index (BMI) Body weight Systolic And Diastolic Provider Name and Address Organization Details Last Updated DateTime 0 182.88 cm 88 /min 98 % 98 % 8 35.4 kg/m2 947509. 61 g 166/79 mm[Hg] Shahzad Early n [place] [facility] 0 09:24:51 Date Recorded Body height Body mass index (BMI) Body weight Heart rate Oxygen saturation Oxygen saturation in Arterial blood by Pulse oximetry Pain severity - 0-10 verbal numeric rating [Score] - Reported Systolic And Diastolic Provider Name and Address Organization Details Last Updated DateTime 9 182.88 cm 35.4 kg/m2 410712. 61 g 84 /min 97 % 97 % 3 175/82 mm[Hg] Hadley casiano MD [facility] [address] , [address], [place], [address], [place] [facility] 9 11:21:54 Social History Question Answer Notes LastModified by Organizat ion Details LastModified Time Tobacco Smoking Status Former Smoker Quit x 3 months Not Available [employer] 01/24/2020 03:16:10 Which Illicit Or Recreational Drugs Have You Used? No [id number] Information not available 01/24/2020 Education 4 Year College BA [email or web address] Information not available 10/29/2015 Live Alone Or With Others? With Others Information not available 10/29/2015 Marital Status Informatio n not available 10/29/2015 What Was The Date Of Your Most Recent Tobacco Screening? 05/31/2018 [id number] Information not available 01/24/2020 How Much Tobacco Do You Smoke? No [id number] Information not available 01/24/2020 How Many Years Have You Smoked Tobacco? 10 [id number] Information not available 01/24/2020 Sex: Unknown Functional Status Question Answer Note LastModified by Organizat ion Details LastModified Time What is your level of alcohol consumption? None [id number] Information not available 01/24/2020 Are you currently employed? No Disability [id number] Information not available 01/24/2020 Mental Status None recorded. Family History Nothing Reported. Medical History Condition Response Anxiety Disorder Y Diabetes Y Neuropathy/Neuralgia Y Hypertension Y Depression Y Past Encounters Encounter ID Performer Location Encounter Start Date Encounter Closed Date Diagnosis/Indication Diagnosis SNOMED-CT Code Diagnosis ICD10 Code Diagnosis IMO Codes Diagnosis Note [id number] Hadley Meng MD PAIN OFFICE [address] [place] [address] 10/29/2015 08:41:04 11/02/2015 15:59:09 Enthesopathy of hip region 64226063 M76.9 Lumbar post-laminectomy syndrome 629098637 M96.1 Spinal nilo nosis of lumbar region 55972151 M48.06 Lumbosacra l radiculitis 95866614 M54.17 Lumbosacra l spondylosis without myelopathy 63172591 M47.817 Displaceme nt of lumbar intervertebral disc without myelopathy 02686284 M51.26 [id number] Hadley Meng MD PAIN OFFICE [address] [place] [address] 11/17/2015 12:57:51 11/17/2015 14:00:05 Enthesopathy of hip region 56273525 M70.61 [id number] Hadley Meng MD PAIN OFFICE [address] [place] [address] 12/17/2015 14:18:25 12/19/2015 10:23:49 Enthesopathy of hip region 45565080 M76.9 Lumbar post-laminectomy syndrome 970677139 M96.1 Spinal nilo nosis of lumbar region 46670714 M48.06 Lumbosacra l radiculitis 59250602 M54.17 Lumbosacra l spondylosis without myelopathy 21721700 M47.817 Displaceme nt of lumbar intervertebral disc without myelopathy 36924219 M51.26 [id number] Hadley Meng MD PAIN OFFICE [address] [place] [address] 12/30/2015 10:13:40 12/31/2015 08:41:07 Lumbosacral radiculitis 24634227 M54.17 Lumbar post-laminectomy syndrome 262295485 M96.1 Spinal nilo nosis of lumbar region 80154253 M48.06 Displaceme nt of lumbar intervertebral disc without myelopathy 85175273 M51.26 Enthesopat hy of hip region 51197482 M76.9 Lumbosacra l spondylosis without myelopathy 13989738 M47.817 [id number] Hadley Meng MD PAIN OFFICE [address] [place], [place] [address] 02/08/2016 10:27:14 02/13/2016 13:21:47 Lumbosacral radiculitis 74674902 M54.17 Lumbar post-laminectomy syndrome 395203299 M96.1 Spinal nilo nosis of lumbar region 58852486 M48.06 Displaceme nt of lumbar intervertebral disc without myelopathy 57338421 M51.26 Enthesopat hy of hip region 72880802 M76.9 Lumbosacra l spondylosis without myelopathy 75230246 M47.817 [id number] Hadley Meng MD PAIN OFFICE [address] [place] [address] 04/06/2016 13:54:38 04/07/2016 14:29:57 Lumbosacral radiculitis 40113814 M54.17 Lumbar post-laminectomy syndrome 017311187 M96.1 Spinal nilo nosis of lumbar region 67202277 M48.06 Displaceme nt of lumbar intervertebral disc without myelopathy 23568692 M51.26 Enthesopat hy of hip region 27184993 M76.9 Lumbosacra l spondylosis without myelopathy 28853635 M47.817 [id number] Hadley Meng MD PAIN OFFICE [address] [place] [address] 04/12/2018 13:23:42 04/13/2018 09:35:11 Spinal stenosis of lumbar region 50726178 M48.061 Lumbar post-laminectomy syndrome 527464605 M96.1 Lumbosacra l radiculitis 40094618 M54.17 Lumbosacra l spondylosis without myelopathy 12384938 M47.817 Displaceme nt of lumbar intervertebral disc without myelopathy 27210934 M51.26 Enthesopat hy of hip region 60325096 M76.9 [id number] Hadley Meng MD PAIN OFFICE [address] [place] [address] 04/26/2018 10:16:43 04/26/2018 11:54:39 Spinal stenosis of lumbar region 86376070 M48.061 Lumbar post-laminectomy syndrome 195624024 M96.1 Lumbosacra l radiculitis 54554056 M54.17 Lumbosacra l spondylosis without myelopathy 13534140 M47.817 Displaceme nt of lumbar intervertebral disc without myelopathy 16268106 M51.26 Enthesopat hy of hip region 07870113 M76.9 [id number] Hadley Megn MD PAIN OFFICE [address] [place] [address] 05/02/2018 10:32:38 05/03/2018 14:10:03 Spinal stenosis of lumbar region 51841593 M48.061 Lumbar post-laminectomy syndrome 865633644 M96.1 Lumbosacra l radiculitis 63675082 M54.17 Lumbosacra l spondylosis without myelopathy 36970673 M47.817 Displaceme nt of lumbar intervertebral disc without myelopathy 59576832 M51.26 Enthesopat hy of hip region 87110745 M76.9 [id number] Hadley Meng MD PAIN OFFICE [address] [place] [address] 05/31/2018 13:26:45 05/31/2018 14:00:17 Spinal stenosis of lumbar region 49406689 M48.061 Lumbar post-laminectomy syndrome 191266911 M96.1 Lumbosacra l radiculitis 97539490 M54.17 Lumbosacra l spondylosis without myelopathy 98429944 M47.817 Displaceme nt of lumbar intervertebral disc without myelopathy 32074469 M51.26 Enthesopat hy of hip region 02744918 M76.9 [id number] Hadley Meng MD [facility] [address] [place] [address] 11/23/2018 10:46:54 12/18/2018 16:19:23 Lumbosacral radiculitis 00305274 M54.17 Lumbar post-laminectomy syndrome 568236745 M96.1 Spinal nilo nosis of lumbar region 45766912 M48.061 Displaceme nt of lumbar intervertebral disc without myelopathy 89387973 M51.26 Enthesopat hy of hip region 59623164 M76.9 Lumbosacra l spondylosis without myelopathy 57435786 M47.817 [id number] Hadley Meng MD [facility] [address] [place] [address] 09/04/2019 09:00:24 09/04/2019 09:23:48 Spinal stenosis of lumbar region 75143822 M48.061 Lumbar post-laminectomy syndrome 058871323 M96.1 Lumbosacra l radiculitis 48502710 M54.17 Lumbosacra l spondylosis without myelopathy 21027403 M47.817 Displaceme nt of lumbar intervertebral disc without myelopathy 29870901 M51.26 Enthesopat hy of hip region 96135099 M76.9 [id number] Hadley Meng MD [facility] [address] [place] [address] 10/02/2019 09:17:58 10/02/2019 10:29:09 Spinal stenosis of lumbar region 60330764 M48.061 Lumbar post-laminectomy syndrome 984732740 M96.1 Lumbosacra l radiculitis 18906926 M54.17 Lumbosacra l spondylosis without myelopathy 80268464 M47.817 Displaceme nt of lumbar intervertebral disc without myelopathy 59684879 M51.26 Enthesopat hy of hip region 66784558 M76.9 [id number] Hadley Meng MD [facility] [address] [place] [address] 10/24/2019 10:59:19 10/24/2019 11:06:51 Spinal stenosis of lumbar region 66332040 M48.061 Lumbar post-laminectomy syndrome 823988546 M96.1 Lumbosacra l radiculitis 61446266 M54.17 Lumbosacra l spondylosis without myelopathy 90933222 M47.817 Displaceme nt of lumbar intervertebral disc without myelopathy 88254011 M51.26 Enthesopat hy of hip region 33024609 M76.9 [id number] Hadley Meng MD PAIN OFFICE [address] [place] [address] 07/20/2020 14:03:57 07/20/2020 14:54:36 Spinal stenosis of lumbar region 92348557 M48.061 Lumbar post-laminectomy syndrome 616756946 M96.1 Lumbosacra l radiculitis 36062052 M54.17 Lumbosacra l spondylosis without myelopathy 66308303 M47.817 Displaceme nt of lumbar intervertebral disc without myelopathy 72588823 M51.26 Enthesopat hy of hip region 65551644 M76.9 Health Concerns Section Related Observation LastModified by Organization Detai ls LastModified Time None Recorded Concern Status LastModified by Organization Details LastModified Time None Recorded Advance Directives Directive None Recorded Payers Insurance Date Sequence Insurance Name Policy Number Policy Curry Covered Member ID Curry Member ID Guarantor Name 07/20/2020 1 [facility] (MEDICARE REPLACEMENT/A DVANTAGE - PPO) [id number] Pete Gonzalez [id number] Pete Gonzalez 07/20/2020 2 [facility] [id number] Pete Gonzalez [id number] Pete Gonzalez Notes Date Note Type Note Provider Name [...] or bowel incontinence. Hadley Meng MD [address] [facility] , [address], [place], [address], [place] [facility] 12/18/2018 16:21:02 09/04/2019 text/html This is a follow up. He recently moved to [place], [place] and has been having increasing pain since the move. He is complaining of low back pain radiating into left lower extremity. He has no history of bladder or bowel incontinence.He had lumbar epidural steroid injection under fluoroscopic guidance on 04/2018 which he states it helped for a few months. He is having difficulty walking due to pain. Hadley Meng MD [address] [facility] , [address], [place], [address], [place] [facility] 09/04/2019 13:17:49 10/02/2019 text/html He is here today for a lumbar epidural steroid injection under fluoroscopic guidance. Hadley Meng MD [address] [facility] , [address], [place], [address], [place] [facility] 10/02/2019 10:41:03 10/24/2019 text/html This is a follow up after a lumbar epidural steroid injection under fluoroscopic guidance. He reports 90% pain relief which is ongoing. He is no longer using a cane and is able to walk better. He has no history of bladder or bowel incontinence. Hadley Meng MD [address] [facility] , [address], [place], [address], [place] [facility] 10/24/2019 14:23:37 07/20/2020 [...] due to pain.He was recently admitted at [facility] due to hypotension. His HbA1c was 9.9. He is getting his Covid vaccine tomorrow. Hadley Meng MD [address] [facility] , [address], [place], [address], [facility] 07/21/2020 10:03:52
--- OUTSIDE RECORDS SUMMARY | 2025-02-05 13:26 | XMS_ITS | Encounter Summary ---
Author Organization [facility] Address [address] [place] [address] Care Team Providers Care Spa Coordinator Name Role Phone Claus Osullivan MD Primary Care Provider [phone] Encounter Details Date Type Department Care Team (Late st Contact Info) Description 05/31/2024 Orders Only Anesthesia [address] [place] [address] Mini Mary APRN [address] [place] [address] Spinal stenosis of lumbar region [...] [address] [place] [address] Peng Bravo MD [address] [place] [address] Scheduled Orders Name Type Priority Associated Diagnoses [...] neurogenic claudication Expected: 05/31/2024 (Approximate), Expires: 07/30/2024 documented as of this encounter Goals Goal Patient Goal Type Associated Problems Recent Progress Patient-Stated? 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 Engineer Goal Care Plan AMB CC POSTERIOR LUMBAR SPINE SUPPORT DIRECTOR PROBLEM No Jenifer Badillo, ROSEANN documented as of this encounter Visit Diagnoses Diagnosis Spinal stenosis of lumbar region with neurogenic claudication- Primary Spinal stenosis, lumbar region, with neurogenic claudication documented in this encounter Additional Health Concerns Active Problems Noted Date Diagnosed Date AMB CC POSTERIOR LUMBAR SPINE SUPPORT DIRECTOR PRO BLEM 04/22/2024 documented as of this encounter Care Teams Spa Coordinator Relationship Specialty Start Date End Date Claus Osullivan MD PCP - General Internal Medicine 03/29/24 documented as of this encounter
--- OUTSIDE RECORDS SUMMARY | 2025-02-05 13:27 | XMS_ITS | Clinical Summary ---
Author Organization [facility] Address [address] [place] [address] Care Team Providers Care Energy Scheduler Name Role Phone Claus Osullivan Primary Care [...] 2) 05/15/2021 03/20/2021 COVID-19 Vaccine ( season) 2024 10/22/2021, 03/20/2021, 08/11/2020, Additional history exists Influenza [...] complete this topic Insurance MEDICARE Care Teams Energy Scheduler Relationship Specialty Start Date End Date Claus Osullivan PCP - General Internal Medicine 10/26/21
--- OUTSIDE RECORDS SUMMARY | 2025-02-05 13:27 | XMS_ITS | Clinical Summary ---
Author Organization [facility] Address [address] [place] [address] Phone Care Team Providers Care Ceramics Machine Operator Name Role Phone Claus Osullivan MD Primary Care Provider [phone] Allergies Active Allergy Reactions Criticality Noted Date Comments Dave Inhibitors 01/26/2024 Aripiprazole 01/26/2024 Abilify Grass Pollen 07/04/2024 Insulin Glargine 06/14/2024 Brexpiprazole 10/28/2024 Semaglutide 01/26/2024 Ozempic (0.25 Or 0.5 Mg-dose Medications amLODIPine (NORVASC) 10 mg tablet Take 10 mg by mouth daily. Active atorvastatin (LIPITOR) 40 mg tablet Take 40 mg by mouth daily. Active carvediloL (COREG) 25 mg tablet Take 1 Tablet by mouth 2 times daily (with meals). Active clonazePAM (KlonoPIN) 1 mg tablet Take 1 mg by mouth 2 times daily as needed. Active empagliflozin (Jardiance) 25 mg tablet Take by mouth daily. Active FLUoxetine (PROzac) 20 mg capsule Take 2 Capsules by mouth daily. Active gabapentin (NEURONTIN) 600 mg tablet Take 1 Tablet by mouth 3 times daily. Active lisinopriL (PRINIVIL,ZESTR IL) 2.5 mg tablet Take 1 Tablet by mouth daily. Active metFORMIN (GLUCOPHAGE) 1,000 mg tablet Take 1,000 mg by mouth 2 times daily (with meals). Active mirtazapine (REMERON) 7.5 mg tablet Take 2 Tablets by mouth at bedtime. Active oxyCODONE (ROXICODONE) 15 mg immediate release tablet Take 5 mg by mouth. Active MORPHINE SULFATE ER PO Take 30 mg by mouth 2 (two) times a day. Active naloxone (NARCAN) 4 mg/0.1 mL nasal spray Administer 1 each (4 mg total) into affected nostril(s) if needed for opioid reversal. Give 4 mg (1 spray) into one nostril. May repeat every 2-3 minutes if needed, alternating nostrils, until medical assistance becomes available. 5 Active polyethylene glycol (Golytely) 236-22.74-6.74 -5.86 gram solution Take 4L by mouth once for one dose. May substitue any PEG. Starting at 6PM the night before your procedure drink 1 8oz glasses at your own pace until you complete half of the gallon. Finish 2nd half of the gallon 5 hours before your procedure. 4000 mL 5 Active bisacodyL (DULCOLAX) 5 mg EC tablet Take 2 tablets by mouth right before beginning bowel prep. See instructions provided by the office 2 tablet 5 Active polyethylene glycol (Golytely) 236-22.74-6.74 -5.86 gram solution Take 4L by mouth once for one dose. May substitue any PEG. Starting at 2PM the day before your procedure drink 1 8oz glasses at your own pace until you complete half of the gallon. Finish 2nd half of the gallon at 8PM. 4000 mL 5 Active bisacodyL (DULCOLAX) 5 mg EC tablet Take 2 tablets by mouth right before beginning bowel prep. See instructions provided by the office 2 tablet 5 Active Active Problems Problem Noted Date Diagnosed Date Type 2 diabetes mellitus, wi thout long-term current use of insulin ([facility] V24, [facility] V28) 06/14/2024 Status post coronary artery bypass graft 025 Assessment & Plan (06/14/2024 10:33 AM EST): Orders: Nuclear stress test with myocardial perfusion; Future Hyperlipidemia LDL goal <55 06/14/2024 Assessment & Plan (06/14/2024 10:33 AM EST): Patient's most recent lipid panel is from 05/10/2024 showing a total cholesterol 168, triglycerides 211, HDL 49, LDL 84 (LDL direct 86); a previous lipid panel from 02/16/2024 shows a total cholesterol of 116, triglycerides 113, HDL 41, and LDL 54. LDL goal for this patient was a history of coronary artery disease as well as diabetes is less than 55; we discussed that his LDL was previously at goal in February 2024 and he reports he has not made any changes to his medications since that time, but has not been eating properly. He agrees to improve his dietary intake to assist with returning LDL to goal. Should his LDL remain elevated above 55 on his next lipid panel, would recommend increasing atorvastatin to 80 mg from 40 mg daily. I have reviewed with the patient the importance of a heart healthy lifestyle which includes eating a low-fat low-salt diet, getting regular exercise, maintaining a healthy weight, not smoking, and following up with routine medical care. Orders: Nuclear stress test with myocardial perfusion; Future Hypertension 08/17/2020 Overview (04/29/2024): Last Assessment & Plan: We will continue current regimen. Assessment & Plan (06/14/2024 10:33 AM EST): Blood pressure is well-controlled in office today; we will not make any changes to his current antihypertensive regimen. Continue amlodipine, carvedilol, hydralazine, hydrochlorothiazide, and lisinopril. Renal function and electrolytes are within normal limits on most recent metabolic panel dated 05/09/2024. Coronary artery disease invo lving [place] coronary artery of [place] heart without angina pectoris 08/17/2020 Overview (04/29/2024): Last Assessment & Plan: Status post CABG in 2016. We will continue current regimen. Planning for stress test. Assessment & Plan (06/14/2024 10:33 AM EST): The patient is status post CABG x 4 in 2016 as well as repeat catheterization in 2020 which revealed patent bypass grafts with residual ischemic regions due to occlusion of the distal LAD beyond DEE insertion and very distal circumflex disease; this residual disease has since been managed medically. He presents today for preop cardiovascular exam; unfortunately, he reports that his activity level is next to nothing. He walked in from the parking lot today without any exertional symptoms, but his gait is very slow and antalgic. Given that he is unable to complete 4 METS of activity, we will update a regadenoson nuclear stress test prior to making preoperative recommendations; the patient is agreeable to this though anxious about this delaying his surgery. He is aware that we will do our best to get him in in a very timely fashion. We will not make any changes to his cardioprotective medical therapies; continue carvedilol and atorvastatin. He has not been on aspirin therapy since at least 2021 according to his previous chart notes and we may need to readdress this. We discussed risk reduction through lifestyle modifications including healthy diet, routine exercise, and weight management. The patient was advised to seek emergent medical attention by calling 911 if they were to develop severe dyspnea, chest pain that did not resolve with rest, or if they were to faint. Orders: ECG 12 lead Nuclear stress test with myocardial perfusion; Future Encounters Date Type Department Care Team Description 12/20/2024 Telephone [facility] - [address] [place] [address] Alma Goldberg NP from Last 3 Months Immunizations Immunization Administration Dates Next Due Pfizer SARS-CoV-2 COVID-19, mRNA, LNP-S, preservative free 10/22/2021 Surgical History Surgery Date Site/Laterality Comments BACK SURGERY CT CARDIAC WITH CONTRAST FOR CORONARY ANGIO (BYPASS GRAFT IF PRESENT) ANTERIOR CRUCIATE LIGAMENT REPAIR Left CHOLECYSTECTOMY SINUS SURGERY Medical History Medical History Date Comments Hypertension Hyperlipidemia Sleep apnea Diabetes mellitus ([facility] V24, [facility] V28) Family History Medical History Relation Name Comments Heart attack Brother Relation Name Status Comments Brother Social History Tobacco Use Types Packs/Day Years Used Date Smoking Tobacco: Some Days Cigars Smokeless Tobacco: Never Tobacco Cessation:Ready to Q uit: Not Asked; Counseling Given: Not Answered Alcohol Use Standard Drinks/Week Comments Not Currently 0 (1 standard drink = 0.6 oz pur e alcohol) Interpersonal Safety Answer Date Record ed Physical Abuse Unrecognized value 10/28/2024 Verbal Abuse Unrecognized value 10/28/2024 Sex and Gender Information Value Date Recorded Sex Assigned at Male 07/04/2024 2:29 PM EDT Legal Sex Male 10:15 PM EST Gender Identity Male 07/04/2024 2:29 PM EDT Sexual Orientation Straight 07/04/2024 2: 29 PM EDT Obstetrics History Last Filed Vital Signs Vital Sign Reading Time Taken Comments Blood Pressure 133/68 10/28/2024 11:22 AM EDT Pulse 70 10/28/2024 11:22 AM EDT Temperature 36.1 C (97 F) 10/28/2024 11:02 AM EDT Respiratory Rate 16 10/28/2024 11:22 AM EDT Oxygen Saturation 99% 10/28/2024 11:22 AM EDT Inhaled Oxygen Concentration - - Weight 90.7 kg (200 lb) 10/28/2024 10:06 AM EDT Height 185.4 cm (6' 1 ) 10/28/2024 10:06 AM EDT Body Mass Index 26.39 10/28/2024 10:06 AM EDT Plan of Treatment Health Maintenance Due Date Last Done Comments Diabetes: Annual Foot Exam 01/17/1970 Diabetes: Annual Retina Eye Exam 01/17/1970 DTaP,Tdap,and Td Vaccines (1 - Tdap) 01/17/1979 Hepatitis A Vaccines (1 of 2 - Risk 2-dose series) 01/17/1979 Pneumococcal Vaccine: 50+ Years (2 of 2 - PCV) 12/15/2019 12/14/2018, 11/22/2016 Zoster Vaccines (2 of 2) 05/15/2021 03/20/2021 Abdominal Aortic Aneurysm (AAA) Screen 03/12/2022 Cholesterol Screening (Lipid Panel) 03/12/2022 Hepatitis C Screening 03/12/2022 Medicare Annual Wellness Visit 03/12/2022 Social Influencers of Health Screening 03/12/2022 Depression Screening 04/10/2024 Diabetes: Annual Urine Albumin-Creatinine Ratio (uACR) 06/14/2024 Diabetes: Blood Sugar Control Test (HGBA1C) 06/14/2024 COVID-19 Vaccine ( season) 2024 02/09/2023, 03/02/2022, 10/22/2021, Additional history exists Influenza Vaccine (#1) 2024 , 01/16/2023, 12/14/2018, Additional history exists Diabetes: Annual GFR (Glomerular Filtration Rate) 07/04/2025 07/04/2024, 06/26/2024, 06/26/2024, Additional history exists Hypertension/CHF/CAD Annual BMP Blood Test 07/04/2025 07/04/2024, 06/26/2024, 06/26/2024, Additional history exists Falls Risk Assessment 10/28/2025 10/28/2024 Colorectal Cancer Screening: Colonoscopy 10/28/2034 10/28/2024 RSV Immunization Adult Patients Completed 02/09/2023 HIB Vaccines Aged Out No longer eligi [...] age to complete this topic Meningococcal B Vaccine Aged Out No l onger eligible based on patient's age to complete this topic RSV Immunization Patients Under 20 months Aged Out No longer eligible based on patient's age to complete this topic Varicella Vaccines Aged Out No longer eligible based on patient's age to complete this topic Procedures Procedure Name Priority Date/Time Associated Diagnosis Comments COLONOSCOPY Routine 10/28/2024 11:01 AM EDT Colon cancer screening BASIC METABOLIC PANEL STAT 07/04/2024 3:31 PM EDT from Last 3 Months or Most Recently Relevant to Health Maintenance Results * COLONOSCOPY Anesthesia - MAC; [facility] ENDOSCOPY (10/28/2024 11:01 AM EDT) Anatomical Region Laterality Modality Other 10/28/2024 10:1 2 AM EDT Impressions 10/28/2024 11:02 AM EDT - Preparation of the colon was fair. - Stool in the entire examined colon. - The examination was otherwise normal on direct and retroflexion views. - No specimens collected. Recommendation: - Discharge patient to home. - Resume previous diet. - Continue present medications. - Repeat colonoscopy at appointment to be scheduled because the bowel preparation was suboptimal. - Return to GI office PRN. Narrative 10/28/2024 11:02 AM EDT [facility] GI Patient Name: Pete Gonzalez Procedure Date: 10/28/2024 10:12 AM Date of : 1960 Age: 64 Room: ROOM 14 Gender: Male Note Status: Finalized Attending MD: Davis French MD, Procedure Date No Time: 10/28/2024 Procedure: Colonoscopy Indications: Screening for colorectal malignant neoplasm Providers: Davis French MD Referring MD: Davis French MD Medicines: Monitored Anesthesia Care Complications: No immediate complications. Estimated Blood Loss: Estimated blood loss: none. Procedure: Pre-Anesthesia Assessment: - ASA Grade Assessment: III - A patient with severe systemic disease. - After reviewing the risks and benefits, the patient was deemed in satisfactory condition to undergo the procedure. After I obtained informed consent, the scope was passed under direct vision. Throughout the procedure, the patient's blood pressure, pulse, and oxygen saturations were monitored continuously.The Colonoscope was introduced through the anus and advanced to the cecum, identified by the ileocecal valve. The colonoscopy was performed without difficulty. The patient tolerated the procedure well. The quality of the bowel preparation was fair. Findings: Semi-liquid stool was found in the entire colon, interfering with visualization. The exam was otherwise without abnormality on direct and retroflexion views. Procedure Code(s): --- Professional --- G0121, Colorectal cancer screening; colonoscopy on individual not meeting criteria for high risk Diagnosis Code(s): --- Professional --- Z12.11, Encounter for screening for malignant neoplasm of colon CPT copyright 2020 [employer]. All rights reserved. The codes documented in this report are preliminary and upon wiener packer review may be revised to meet current compliance requirements. Davis French MD 10/28/2024 11:02:05 AM This report has been signed electronically.Davis French MD Number of Addenda: 0 Note Initiated On: 10/28/2024 10:12 AM Scope In: Scope Out: Endoscopy Department at [facility] - [address] [place] [id number] Procedure Note Davis French MD - 10/28/2024 [facility] GI Patient Name: Pete Gonzalez Procedure Date: 10/28/2024 10:12 AM Date of : 1960 Age: 64 Room: ROOM 14 Gender: Male Note Status: Finalized Attending MD: Davis French MD, Procedure Date No Time: 10/28/2024 Procedure: Colonoscopy Indications: Screening for colorectal malignant neoplasm Providers: Davis French MD Referring MD: Davis French MD Medicines: Monitored Anesthesia Care Complications: No immediate complications. Estimated Blood Loss: Estimated blood loss: none. Procedure: Pre-Anesthesia Assessment: - ASA Grade Assessment: III - A patient with severe systemic disease. - After reviewing the risks and benefits, thepatient was deemed in satisfactory condition to undergo the procedure. After I obtained informed consent, the scope was passed under direct vision. Throughout theprocedure, the patient's blood pressure, pulse, and oxygen saturations were monitored continuously.The Colonoscope was introduced through the anus and advanced to the cecum, identified by the ileocecal valve. The colonoscopy was performed without difficulty. The patient tolerated the procedurewell. The quality of the bowel preparation was fair. Findings: Semi-liquid stool was found in the entire colon, interfering with visualization. The exam was otherwise without abnormality ondirect and retroflexion views. Procedure Code(s): --- Professional --- G0121, Colorectal cancer screening; colonoscopy on individual not meeting criteria for high risk Diagnosis Code(s): --- Professional --- Z12.11, Encounter for screening for malignantneoplasm of colon CPT copyright 2020 [employer]. All rights reserved. The codes documented in this report are preliminary and upon wiener packer reviewmay be revised to meet current compliance requirements. Davis French MD 10/28/2024 11:02:05 AM This report has been signed electronically.Davis French MD Number of Addenda: 0 Note Initiated On: 10/28/2024 10:12 AM Scope In: Scope Out: Endoscopy Department at [facility] - [address] [place] [id number] IMPRESSION: - Preparation of the colon was fair. - Stool in the entire examined colon. - The examination was otherwise normal on directand retroflexion views. - No specimens collected. Recommendation: - Discharge patient to home. - Resume previous diet. - Continue present medications. - Repeat colonoscopy at appointment to be scheduled because the bowel preparation was suboptimal. - Return to GI office PRN. us Davis French MD GI~PROCEDURE ORDERABLES Final Result * (ABNORMAL) Basic Metabolic Panel (BMP) (07/04/2024 3:31 PM EDT) Sodium 134(L) 135 - 145 mmol/L LAB [facility] Potassium 4.1 3.5 - 5.1 mmol/L LAB CHEMISTRY METHOD 07/04/2024 3:58 PM [facility] Chloride 96(L) 98 - 107 mmol/L LAB CHEMISTRY METHOD 07/04/2024 3:58 PM [facility] CO2 30 24 - 32 mmol/L LAB CHEMISTRY METHOD 07/04/2024 3:58 PM [facility] Anion Gap 8 5 - 14 LAB CHEMISTRY METHOD 07/04/2024 3:[facility] Glucose 246(H) 70 - 199 mg/dL LAB CHEMISTRY METHOD 07/04/2024 3:[facility] BUN 25(H) 9 - 20 mg/dL LAB CHEMISTRY METHOD 07/04/2024 3:58 PM [facility] Creatinine 1.02 0.70 - 1.30 mg/dL LAB CHEMISTRY METHOD 07/04/2024 3:58 PM EDT [facility] eGFR 82 >=60 mL/min/1. 73m2 LAB CHEMISTRY METHOD 07/04/2024 3:58 PM EDT [facility] Comment:Calculation based on the Chronic Kidney Disease Epidemiology Collaboration (CKD-EPI) equation refit without adjustment for race. BUN/Creatinine Ratio 24.5(H) 12.0 - 20.0 LAB CHEMISTRY METHOD 07/04/2024 3:58 PM EDT [facility] Calcium 8.9 8.4 - 10.2 mg/dL LAB CHEMISTRY METHOD 07/04/2024 3:58 PM EDT [facility] Blood Venous blood specimen / Unknown Venipuncture / Unknown 07/04/2024 3:31 PM EDT 07/04/2024 3:38 PM EDT us Arnold Prater MD LAB BLOOD ORDERABLES Final Res ult [facility] [address] [place] [address], [place] [phone] from Last 3 Months or Most Recently Relevant to Health Maintenance Insurance Care Teams Ceramics Machine Operator Relationship Specialty Start Date End Date Claus Osullivan MD [address] [place] [address] PCP - General Internal Medicine 06/18/24
--- OUTSIDE RECORDS SUMMARY | 2025-02-05 13:27 | XMS_ITS | Encounter Summary ---
Author Organization [facility] Address [address] [place] [id number] Care Team Providers Care Wind Turbine Installer Name Role Phone Claus Osullivan MD Primary Care Provider [phone] Reason for Referral * Imaging (Routine) - New Request Specialty Diagnoses / Procedures Referred By Contac t Referred To Contact Diagnostic Radiology Procedures MRI Lumbar Spine with and without IV Contrast [facility] SCHEDULING [address] [place] [address] Phone: tel: Referral ID Status Reason Start Date Expiration Date V isits Requested Visits Authorized [id number] New Request 02/07/2024 02/06/2025 1 1 Encounter Details Date Type Department Care Team (Late st Contact Info) Description 02/07/2024 Scanned Document [facility] SCHEDULING [address] [place] [address] Aman Stanford . Social History Tobacco Use [...] Drive [address] [place] [address] Peng Bravo MD [address] [place] [address] documented as of this encounter Procedures Procedure [...] on filedocumented in this encounter Care Teams Wind Turbine Installer Relationship Specialty Start Date End Date Claus Osullivan MD PCP - General Internal Medicine 03/29/24 documented as of this encounter
== END 2025-02-05 11:35 | disposition home or self-care (01) ==
LOC: HO.HOP 10:44
PROVIDERS: PCP Internal Medicine; Visit Provider Psychiatry & Neurology Psychiatry
DX: F33.9 Major depressive disorder, recurrent, unspecified (principal); F43.10 Post-traumatic stress disorder, unspecified
CPT/HCPCS: 99214